=== PATIENT | female | born 1950 | race African-American/Black ===

== ENCOUNTER → 2016-10-26 | Outpatient (CLI) | payer OTHER ==
[~2016-10-26] VITALS: Ht 167.6 cm; Wt 74.8 kg
[~2016-10-26] MED LIST: AMOXICILLIN500 M1 PO; BENADRYL25 MG; EXFORGE; HYDROCHLOROTHIA25 M2 PO; LEVOTHYROXIN0.125 M1 PO; MOBIC15 MG PO; MULTI VITAMIN1 EACH PO; OXYCODONE HCL15 MG PO; TRINATE TABLET1 TAB PO
--- NOTE | ~2016-10-26 | HPC ---
[facility] [place] [address] PAIN MANAGEMENT CONSULTATION Name: DESHAWN KELLY Room #: REG JAKE Hawkins#: [id number] Admission: 10/26/16 Attend Phys: Isiah Huang DO Discharge: Date of : 50 Report #: [id number] THIS REPORT FOR: //name// CC: Rhoda Huang HISTORY OF PRESENT ILLNESS: This is a pleasant 66-year-old female seen in consultation at the request of Dr. Denny for assistance with management of pain, neck, left shoulder and arm. The patient notes she has had chronic cervical radicular symptoms off and on since the s. This bout recurred 4-6 weeks ago without antecedent trauma and overuse. She had similar symptoms well treated with cervical epidural injections x 3 in 09/2014 at another facility, she states she has had multiple cervical epidural injections over the past number of years. She uses oxycodone p.r.n. from her "pain therapist", use a topical pain cream. She notes pain is continuous, steady, constant, sharp and stabbing, rates anywhere from a 5 to a "10+" on a 0-10 visual analog scale. She notes pressure movements swelling, lifting above her head and/or bending over, such as washing bathtub seemed to exacerbate pain. Cervical epidural injections and medication has afforded some relief. 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 She notes no myelopathic symptoms. No bowel or bladder continence changes or saddle anesthesia nor loss proprioception of lower extremities. REVIEW OF SYSTEMS: Complete review of systems attached to chart and gone over with the patient. She is , does not smoke, drink alcohol to excess. History of hypertension, treated with hydrochlorothiazide. She has been on Synthroid for a number of years, history of pancreatitis in the distant past, it appeared to be idiopathic. She does not drink or use recreational drugs. She has some episodic gastroesophageal reflux, is on no medications for same. SURGICAL HISTORY: Has included a right total knee arthroplasty, partial hysterectomy in , breast biopsy, which was fortunately benign, tonsillectomy in childhood. The patient has been off work since 2004. She is a homemaker. She has multiple children and 8 grandchildren and I believe she said 3 great grandchildren. Pain impact score is fairly nominal. PHYSICAL EXAMINATION: GENERAL: Reveals a pleasant 66-year-old female, 5 feet 6 inches, 165 pounds, BMI is 26.6 kilograms per meter squared. VITAL SIGNS: Blood pressure is quite elevated 193/103, pulse 61, respirations 16. We did refer patient back to Dr. Denny regarding her blood pressure, which remained hypertensive throughout her stay. NEUROLOGIC: She is alert and oriented to person, place, and time, judged to [place] [address] PAIN MANAGEMENT CONSULTATION Name: DESHAWN KELLY Room #: REG [facility] Ross#: [id number] Admission: 10/26/16 Attend Phys: Isiah Huang DO Discharge: Date of : 50 Report #: [id number] HEENT: Pupils equal, reactive to light and accommodation. Extraocular muscles are intact. Thyroid is enlarged, no nodules are noted. MUSCULOSKELETAL: Cervical range of motion is limited with grossly positive Lhermitte's. She has a positive Tinel's over the left radial. Left biceps reflex is absent, 1/4 in the right brachioradialis and triceps reflexes are symmetric. Slight decreased left deltoid and biceps strength. HEART: Regular and rhythmical without murmur. LUNGS: Clear to auscultation. ABDOMEN: Unremarkable. EXTREMITIES: Gait is tandem. Lower extremity strength is preserved but she has some subjective pain in the right knee. DIAGNOSTIC STUDIES: Include Cervical MRI from 10/16/2015 noting posterior disk space narrowing at C6-C7 with bilateral neural foraminal narrowing, C5-C6 notes canals narrowed to 9 mm at the C4-C5 and C3-C4. There is bilateral neural foraminal stenosis at multiple levels, more prominent on the left at C3-C4. ASSESSMENT: Symptomatic cervical radiculopathy. The patient has significant hypertension. RECOMMENDATIONS: 1. Cervical epidural injection under fluoroscopy today. 2. Meloxicam 15 mg 1 a day. 3. Follow up with Dr. Denny regarding hypertension. 4. Follow up in 3 weeks for reevaluation and to evaluate efficacy of interventional therapy. PROCEDURE: Cervical epidural injection under fluoroscopy. PROCEDURE NOTE: After written and informed consent was obtained including risk of dural puncture, spinal cord trauma, paralysis and increased pain, the patient was taken to the fluoroscopy suite and placed in the prone position, with appropriate abdominal bolstering, neck was flexed, palms under the thighs. Skin was prepped with ChloraPrep. Sterile draping was applied. Skin wheal with 1% Xylocaine was raised. A 22-gauge 3-1/2 inch epidural Tuohy needle was placed via a midline approach at the C7-T1 interspace, advanced under biplanar fluoroscopy using continuous loss of resistance. With appropriate loss of resistance at the expected depth on lateral view, the glass loss of resistance syringe was disconnected. A low volume extension tubing was connected to the needle and a 5 mL syringe. Negative aspiration for cerebrospinal fluid or blood was noted. A 1 mL of Omnipaque was injected which showed spread within the epidural space on biplanar fluoroscopy. This was followed with 80 mg of triamcinolone plus 1 mL of 1.5% preservative Xylocaine. Needle was withdrawn to the interspinous ligament, 0.5 mL of Xylocaine was used to flush the needle. The needle was then completely withdrawn. The area was cleansed. Band-Aid was applied. The patient was allowed to move off the procedure table and ambulated [address] [address] PAIN MANAGEMENT CONSULTATION Name: KELLYDESHAWN Delia [id number] Admission: 10/26/16 Attend Phys: Isiah Huang DO Discharge: Date of : 50 Report #: [id number] to the recovery room, monitored for an appropriate period of time, discharged in good and stable condition. <ELECTRONICALLY SIGNED> By: Isiah Huang DO 10/29/16 0902 1642 0636 Isiah Huang DO /nt
[2016-10-26 14:54] VITALS: BP 193/103
== END | disposition home or self-care (01) ==
LOC: PAIN 13:07
DX: M54.12 Radiculopathy, cervical region (principal); I10 Essential (primary) hypertension; K21.9 Gastro-esophageal reflux disease without esophagitis

== ENCOUNTER → 2016-11-20 | Outpatient (CLI) | payer OTHER ==
[~2016-11-20] VITALS: Ht 167.6 cm; Wt 74.4 kg
[~2016-11-20] MED LIST changes: +LISINOPRIL10 MG PO
--- NOTE | ~2016-11-20 | HPC ---
[facility] [place] [address] PAIN MANAGEMENT CONSULTATION Name: DESHAWN KELLY Room #: REG JAKE Hawkins#: [id number] Admission: 11/20/16 Attend Phys: Isiah Haung DO Discharge: Date of : 50 Report #: [id number] THIS REPORT FOR: //name// CC: Rhoda Huang HISTORY OF PRESENT ILLNESS: The patient is a 66-year-old female seen in consultation on 10/26/2016, diagnosed as symptomatic cervical radiculopathy, comorbidity with hypertension. She was given a single epidural injection at that time with greater than 50% overall improvement of baseline pain. Returns to pain clinic today noting she still has some cervical radicular symptoms with paresthesia into the left shoulder and arm. Positive Lhermitte's. Rates the pain 7/10. She incidentally notes today ongoing pain in the left knee, which has been problematic. She had had a series of Synvisc injections about a year ago with good relief. Pain has begun to recur. PHYSICAL EXAMINATION: Does show a little bit of ballottable edema, perhaps 20+ mL in this knee. The ligaments are intact. Does have pain with ambulation. Blood pressure is modestly elevated today , pulse 71, respirations 14. Again positive Lhermitte's with slight decreased left shoulder strength. ASSESSMENT: 1. Symptomatic cervical radiculopathy, incremental improvement following one epidural injection. 2. Hypertension. 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 3. Degenerative joint disease, osteoarthritis, left knee. RECOMMENDATIONS: Use topical Voltaren gel for the knee. We will plan on moving forward with Synvisc injection and arthrocentesis at next visit. PROCEDURE: Cervical epidural injection under fluoroscopy. PROCEDURE NOTE: After written and informed consent was obtained including risk of dural puncture, spinal cord trauma, paralysis and increased pain, the patient was taken to the fluoroscopy suite and placed in the prone position, with appropriate abdominal bolstering, neck was flexed, palms under the thighs. Skin was prepped with ChloraPrep. Sterile draping was applied. Skin wheal with 1% Xylocaine was raised. A 22-gauge 3-1/2 inch epidural Tuohy needle was placed via a midline approach at the C7-T1 interspace, advanced under biplanar fluoroscopy using continuous loss of resistance. With appropriate loss of resistance at the expected depth on lateral view, the glass loss of resistance syringe was disconnected. A low volume extension tubing was connected to the [facility] [address] [place] [address] PAIN MANAGEMENT CONSULTATION Name: DESHAWN KELLY Room #: REG JAKE Hawkins#: [id number] Admission: 11/20/16 Attend Phys: Isiah Huang DO Discharge: Date of : 50 Report #: [id number] needle and a 5 mL syringe. Negative aspiration for cerebrospinal fluid or blood was noted. A 1 mL of Omnipaque was injected which showed spread within the epidural space on biplanar fluoroscopy. This was followed with 80 mg of triamcinolone plus 1 mL of 1.5% preservative Xylocaine. Needle was withdrawn to the interspinous ligament, 0.5 mL of Xylocaine was used to flush the needle. The needle was then completely withdrawn. The area was cleansed. Band-Aid was applied. The patient was allowed to move off the procedure table and ambulated to the recovery room, monitored for an appropriate period of time, discharged in good and stable condition. By: [id number] Isiah Huang DO /nt
[2016-11-20 09:56] VITALS: BP 139/98
== END ==
LOC: PAIN 11-16 06:32
DX: M54.12 Radiculopathy, cervical region (principal); I10 Essential (primary) hypertension; M17.12 Unilateral primary osteoarthritis, left knee

== ENCOUNTER → 2016-12-18 | Outpatient (CLI) | payer OTHER ==
[~2016-12-18] VITALS: Ht 167.6 cm; Wt 74.8 kg
--- NOTE | ~2016-12-18 | HPC ---
[facility] [place] [address] PAIN MANAGEMENT CONSULTATION Name: DESHAWN KELLY Delia Room #: REG [facility] Ross#: [id number] Admission: 12/18/16 Attend Phys: Isiah Huang DO Discharge: Date of : 50 Report #: [id number] THIS REPORT FOR: //name// CC: Rhoda Huang The patient is a very pleasant 56-year-old female. She was prior treated for symptomatic cervical radiculopathy, given cervical epidural injection 11/20/2016, with excellent improvement of symptoms. She returns to pain clinic today. At last visit, we had discussed Synvisc injection, left knee. She had 1 Synvisc injection about 3 weeks ago at another provider. She has said I continue the injection series for her. She returns to pain clinic today with ongoing pain in the left knee. Really no ballotable edema noted at this time, but pain with weightbearing. Ligaments are intact. Subjective pain score is 3/10. ASSESSMENT: Degenerative joint disease, left knee, history of cervical radiculopathy. PROCEDURE: Synvisc injection left knee (essentially injection #2 in a series of 3). PROCEDURE NOTE: After written and informed consent was obtained, the patient was placed in the seated position with the left leg allowed to dangle. The knee was prepped with chlorhexidine. Skin wheal with Xylocaine was raised from a lateral and inferior aspect over the superior aspect of the tibial plateau. A 20 gauge Angiocath was easily inserted in a medial superior trajectory into the knee joint. The needle was removed, 2 mL of Synvisc (hylan G-F 20) was injected. The Angiocath was removed. The area was cleansed, Band-Aids applied. The patient is to follow up in 1 week for Synvisc #3. By: [id number] 1322 Isiah Huang, /nt
[2016-12-18 11:00] VITALS: BP 148/94
== END ==
LOC: PAIN 06:48
DX: M17.12 Unilateral primary osteoarthritis, left knee (principal); M54.12 Radiculopathy, cervical region; I10 Essential (primary) hypertension

== ENCOUNTER → 2016-12-25 | Outpatient (CLI) | payer OTHER ==
[~2016-12-25] VITALS: Ht 167.6 cm; Wt 75.3 kg
[2016-12-25 11:15] VITALS: BP 159/95
== END ==
LOC: PAIN 06:52
DX: M17.12 Unilateral primary osteoarthritis, left knee (principal); M54.12 Radiculopathy, cervical region; I10 Essential (primary) hypertension

== ENCOUNTER 2017-07-14 15:10 | Emergency (ER) | payer OTHER ==
[~2017-07-14] VITALS: Ht 167.6 cm; Wt 68.0 kg
[2017-07-14] MEDS ORDERED: PROMETHAZINE/C118 ML PO (16:49)
[2017-07-14 17:26] VITALS: BP 135/75
== END 2017-07-14 17:28 | disposition home or self-care (01) ==
LOC: ER 15:10
DX: J06.9 Acute upper respiratory infection, unspecified (principal); Z88.6 Allergy status to analgesic agent; Z88.0 Allergy status to penicillin; Z98.890 Other specified postprocedural states

== ENCOUNTER → 2017-08-30 | Outpatient (CLI) | payer OTHER ==
[~2017-08-30] MED LIST changes: +COZAAR100 MG PO; +HYDRALAZINE 2525 MG PO; +NORVASC10 MG PO; +OXYCONTIN15 MG PO; +PROMETHAZINE/C118 ML PO; +SYNTHROID50 MCG PO
== END ==
LOC: RAD 01:19
DX: Z12.31 Encounter for screening mammogram for malignant neoplasm of breast (principal)

== ENCOUNTER → 2017-09-22 | Outpatient (CLI) | payer OTHER ==
[~2017-09-22] MED LIST changes: -COZAAR100 MG PO; -HYDRALAZINE 2525 MG PO; -NORVASC10 MG PO; -OXYCONTIN15 MG PO; -SYNTHROID50 MCG PO
== END ==
LOC: ULTRA 09-08 14:31
DX: N63.10 Unspecified lump in the right breast, unspecified quadrant (principal); R92.8 Other abnormal and inconclusive findings on diagnostic imaging of breast

== ENCOUNTER 2017-11-10 14:52 | Inpatient (IN) | payer OTHER ==
[~2017-11-10] VITALS: Ht 167.6 cm; Wt 71.7 kg
--- NOTE | ~2017-11-10 | D ---
[facility] [place] [address] DISCHARGE SUMMARY Name: DESHAWN KELLY Room #: 462-P [facility] IN M.R.#: [id number] Admission: 11/10/17 Attend Phys: Avila Weinberg Discharge: 11/15/17 Date of : 50 Report #: [id number] THIS REPORT FOR: //name// CC: Jairo Orozco DATE OF SERVICE: 11/15/2017 CHIEF COMPLAINT: Hypertension and hypothyroidism. HOSPITAL COURSE: The patient was admitted with elevated blood pressure. She was seen by the Cardiology service and no new findings were made. Hydralazine and losartan were added to her Norvasc and hydrochlorothiazide. TSH was elevated. There was some question of medication compliance. She had no other interval complication. Urine studies for catecholamines were still pending. MRI of the adrenal glands were negative for mass or adenoma. Therefore, no clinical diagnosis of pheochromocytoma was made. Renal ultrasound of the renal arteries was negative as well. DISPOSITION: She will be discharged to home with diet and activity as tolerated. Follow up with Dr. Orozco. She will continue with hydralazine, Cozaar, Norvasc, hydrochlorothiazide, thyroid and oxybutynin. <ELECTRONICALLY SIGNED> By: Lawson Guerrero MD 11/16/17 1526 1030 1045 Lawson Guerrero MD /nt
--- NOTE | ~2017-11-10 | 2DMMODE ---
[facility] [address] [place] [address] 2 D/M-MODE ECHOCARDIOGRAM Name: KELLYDESHAWN QUINTEN Room #: 353-P ADM IN M.R.#: [id number] Admission: 11/10/17 Attend Phys: Jairo Calzada Discharge: Date of : 50 Date of Service: 11/11/17 1013 Report #: [id number] THIS REPORT FOR: //name// APPROVED REPORT Study performed: 11/11/2017 08:09:16 EXAM: Comprehensive 2D, Doppler, and color-flow Echocardiogram Patient Location: Bedside Room #: 353 Status: routine BSA: 1.81 HR: 52 bpm BP: 179/95 mmHg Other Information Study Quality: Good Indications Uncontrolled HTN 2D Dimensions RVDd: 31.39 mm LVEF(%): 66.00 (>50%) IVSd: 16.16 (7-11mm) LVOT Diam: 19.81 (18-24mm) LVDd: 38.02 mm PWd: 14.65 (7-11mm) Ascending Ao: 32.01 (22-36mm) LVDs: 24.44 (25-40mm) Aortic Root: 26.99 mm IVC: 19.00 mm Fernandez's LVEF: 66.00 % Volumes Left Atrial Volume (Systole) Single Plane 4CH: 61.09 mL Single Plane 2CH: 45.38 mL LA ESV Index: 33.00 mL/m2 Aortic Valve AoV Peak Andrea.: 1.27 m/s AO Peak Gr.: 6.43 mmHg LVOT Max P.64 mmHg LVOT Max V: 0.95 m/s TEMI Vmax: 2.32 cm2 Mitral Valve E/A Ratio: 0.9 MV Decel. Time: 290.96 ms MV E Max Andrea.: 0.66 m/s [facility] [place] [address] 2 D/M-MODE ECHOCARDIOGRAM Name: DESHAWN KELLY QUINTEN Room #: 353-P ADM IN M.R.#: [id number] Admission: 11/10/17 Attend Phys: Jairo Calzada Discharge: Date of : 50 Date of Service: 11/11/17 1013 Report #: [id number] MV A Andrea.: 0.75 m/s MV PHT: 84.38 ms IVRT: 103.81 ms Pulmonary Valve PV Peak Andrea.: 0.76 m/s PV Peak Gr.: 2.28 mmHg Pulmonary Vein P Vein S: 0.45 m/s P Vein A: 0.28 m/s P Vein D: 0.35 m/s P Vein A Dur.: 193.8 msec P Vein S/D Ratio: 1.29 Tricuspid Valve TR Peak Andrea.: 2.39 m/s RAP Estimate: 5.00 mmHg TR Peak Gr.: 22.77 mmHg PA Pressure: 28.00 mmHg Left Ventricle The left ventricle is normal size. There is normal LV segmental wall motion. Moderate concentric left ventricular hypertrophy. The left ventricular systolic function is normal. The left ventricular ejection fraction is within the normal range. LVEF is 65-70%. Mild diastolic dysfunction is present (impaired relaxation pattern). Right Ventricle The right ventricle is normal size. The right ventricular systolic function is normal. Atria The left atrium size is normal. The right atrium size is normal. Aortic Valve The aortic valve is mildly sclerotic. No aortic regurgitation is present. There is no aortic valvular stenosis. Mitral Valve The mitral valve is normal in structure. Mild mitral regurgitation. No evidence of mitral valve stenosis. Tricuspid Valve The tricuspid valve is normal in structure. Trace to mild tricuspid regurgitation. PAP is estimated at 28 mmHg. Pulmonic Valve [address] [address] 2 D/M-MODE ECHOCARDIOGRAM Name: DESHAWN KELLY QUINTEN Room #: 353-P [facility] IN .R.#: [id number] Admission: 11/10/17 Attend Phys: Jairo Calzada Discharge: Date of : 50 Date of Service: 11/11/17 1013 Report #: [id number] The pulmonary valve is normal in structure. Mild pulmonic regurgitation. Great Vessels The aortic root is normal in size. IVC is normal in size and collapses >50% with inspiration. Pericardium There is no pericardial effusion. <Conclusion> The left ventricular systolic function is normal. There is normal LV segmental wall motion. Moderate concentric left ventricular hypertrophy. LVEF 65-70%. Mild diastolic dysfunction The aortic valve is mildly sclerotic. No aortic regurgitation or stenosis. The mitral valve is normal in structure. Mild mitral regurgitation. Trace to mild tricuspid regurgitation. Pullmonary artery pressure estimated at 28 mmHg. There is no pericardial effusion. <ELECTRONICALLY SIGNED> By: Ezequiel Mckeon MD, [facility] 11/11/17 1013 1013 1013 Ezequiel Mckeon MD, FACC /INF
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
[2017-11-10 17:08] LABS: HEMATOCRIT 39.7 % (37.0-47.0); HEMOGLOBIN 13.2 gm/dL (12.0-15.0); MCH 30.7 pg (26.0-34.0); MCHC 33.2 g/dL (28.0-37.0); MCV 92.6 fL (80.0-100.0); RBC 4.29 mil/uL (4.20-5.00); RDW 14.6 % (10.5-14.5); WBC 7.5 thou/uL (4.0-11.0)
[2017-11-10 17:25] LABS: ALBUMIN 4.2 g/dL (3.4-5.0); CALCIUM 10.1 mg/dL (8.5-10.1); CREATININE 1.2 mg/dL (0.6-1.0); POTASSIUM 3.1 mmol/L (3.5-5.1); TOTAL BILIRUBIN 0.3 mg/dL (<0.1-1.0); TOTAL PROTEIN 8.7 g/dL (6.4-8.2)
[2017-11-10] MEDS ORDERED: NORVASC10 MG PO (19:33)
[2017-11-10] MEDS ORDERED: HYDROCHLOROTHIA25 M2 PO (19:34)
[2017-11-10] MEDS ORDERED: SYNTHROID50 MCG PO (19:34)
[2017-11-10] MEDS ORDERED: OXYCONTIN15 MG PO (19:35)
[2017-11-10 20:00] VITALS: BP 202/109
[2017-11-10 23:41] VITALS: BP 157/87
[2017-11-11 04:00] VITALS: BP 179/95
[2017-11-11 07:40] VITALS: BP 159/101
[2017-11-11 12:10] VITALS: BP 176/111
[2017-11-11 16:20] VITALS: BP 174/106
[2017-11-11 19:47] VITALS: BP 211/92
[2017-11-11 22:40] LABS: URINE BILIRUBIN NEGATIVE (Negative); URINE BLOOD NEGATIVE (Negative); URINE CLARITY CLEAR; URINE COLOR YELLOW; URINE GLUCOSE-RANDOM* NEGATIVE (Negative); URINE KETONES NEGATIVE (Negative); URINE LEUKOCYTES 1+ (Negative); URINE NITRITE NEGATIVE (Negative); URINE PROTEIN (DIPSTICK) NEGATIVE (Negative); URINE SPECIFIC GRAVITY <= 1.005 (1.005-1.035); URINE UROBILINOGEN 0.2 E.U./dl (0.2-1.0)
[2017-11-11 22:56] LABS: BACTERIA 1-9 Few /HPF (None Seen); CASTS None Seen /LPF (None Seen); CRYSTALS None Seen /LPF (None Seen); SQUAMOUS 0-3 Few /LPF (0-3); URINE RBC None Seen /HPF (0-2); URINE WBC 6-15 Few /HPF (0-5)
[2017-11-12] VITALS (8 sets, daily range): BP systolic 151–178; BP diastolic 92–111
[2017-11-13 04:27] VITALS: BP 172/104
[2017-11-13 07:43] VITALS: BP 159/91
[2017-11-13 16:01] VITALS: BP 167/116
[2017-11-13 20:13] VITALS: BP 174/99
[2017-11-14] VITALS (8 sets, daily range): BP systolic 106–165; BP diastolic 69–90
[2017-11-15 05:54] VITALS: BP 132/84
[2017-11-15 08:00] VITALS: BP 143/78
[2017-11-15] MEDS ORDERED: HYDRALAZINE 2525 MG PO (11:50)
[2017-11-15] MEDS ORDERED: COZAAR100 MG PO (11:50)
[2017-11-15 12:01] VITALS: BP 143/78
== END 2017-11-15 13:35 | disposition home or self-care (01) | DRG 305 ==
LOC: 3W 14:52 → 4W 11-12 18:02 → ENTRNSPT 11-15 12:34 → EDTRNSPTSTS 11-15 12:38 → 4W 11-15 13:35
PROVIDERS: Internal Medicine Geriatric Medicine
DX: I16.9 Hypertensive crisis, unspecified (principal); I10 Essential (primary) hypertension; E03.9 Hypothyroidism, unspecified; G89.29 Other chronic pain; M54.9 Dorsalgia, unspecified; F41.9 Anxiety disorder, unspecified; K59.00 Constipation, unspecified; Z96.651 Presence of right artificial knee joint; Z87.828 Personal history of other (healed) physical injury and trauma; Z79.899 Other long term (current) drug therapy; Z88.1 Allergy status to other antibiotic agents; Z88.5 Allergy status to narcotic agent; Z88.6 Allergy status to analgesic agent
CPT/HCPCS: 10045; 10879

== ENCOUNTER → 2018-11-09 | Outpatient (CLI) | payer OTHER ==
[~2018-11-09] VITALS: Ht 167.6 cm; Wt 73.0 kg
[~2018-11-09] MED LIST changes: +COZAAR100 MG PO; +HYDRALAZINE 2525 MG PO; +NORVASC10 MG PO; +OXYCONTIN15 MG PO; +SYNTHROID50 MCG PO
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
[2018-11-09 13:49] VITALS: BP 174/97
--- NOTE | 2018-11-09 14:13 | NUR ---
Pain Clinic Assessment: 1. History of Osteoarthritis: SPINE History of Rheumatoid Arthritis: 2. Height: 5 ft. 6 in. 167.6 cm. Weight: 161.0 lb. oz. 73.029 kg. Patient's BMI: 26.0 3. Vital Signs: BP: 174/97 Pulse: 63 Resp: 16 Temp: 02 Sat: 100 ECG Mon: 4. Pain Intensity: 10 5. Fall Risk: Dizziness: Y Needs help standing or walking: N Fallen in the last 3 months: N Fall risk comments: 6. Patient on Blood Thinner: None 7. History of Hypertension: Y 8. Opioid Therapy greater than 6 weeks: N Opiate Contract Signed: 9. Risk Assessment Tool Provided: LOW 10. Functional Assessment Tool: 62/70 11. Recreational Drug Use: Current within past 3 mos Drug Type: MARAJAUNA Tobacco Use: Former Smoker Tobacco Type: Amount or Packs/day: How Many Years: Alcohol Use: Yes Frequency: Special Occasions Quant:
== END | disposition home or self-care (01) ==
LOC: PAIN 07:07
DX: M54.12 Radiculopathy, cervical region (principal); G89.29 Other chronic pain; I10 Essential (primary) hypertension; E07.9 Disorder of thyroid, unspecified; M19.90 Unspecified osteoarthritis, unspecified site; Z98.890 Other specified postprocedural states; Z90.711 Acquired absence of uterus with remaining cervical stump; Z96.659 Presence of unspecified artificial knee joint; Z88.8 Allergy status to other drugs, medicaments and biological substances; Z79.899 Other long term (current) drug therapy

== ENCOUNTER → 2018-11-23 | Outpatient (CLI) | payer OTHER ==
[~2018-11-23] VITALS: Ht 167.6 cm; Wt 74.3 kg
[~2018-11-23] MED LIST changes: +AMITRIPTYLINE H10 M3 PO; +HYDROCODON-ACE1 EAC5 PO
[2018-11-23 10:50] VITALS: BP 179/105
--- NOTE | 2018-11-23 10:54 | NUR ---
Pain Clinic Assessment: 1. History of Osteoarthritis: SPINE History of Rheumatoid Arthritis: 2. Height: 5 ft. 6 in. 167.6 cm. Weight: 163.8 lb. oz. 74.299 kg. Patient's BMI: 26.5 3. Vital Signs: BP: 179/105 Pulse: 67 Resp: 16 Temp: 02 Sat: 100 ECG Mon: 4. Pain Intensity: 10 5. Fall Risk: Dizziness: N Needs help standing or walking: N Fallen in the last 3 months: N Fall risk comments: 6. Patient on Blood Thinner: None 7. History of Hypertension: Y 8. Opioid Therapy greater than 6 weeks: N Opiate Contract Signed: 9. Risk Assessment Tool Provided: LOW 10. Functional Assessment Tool: 62/70 11. Recreational Drug Use: Current within past 3 mos Drug Type: MARAJAUNA Tobacco Use: Former Smoker Tobacco Type: Amount or Packs/day: How Many Years: Alcohol Use: No Frequency: Quant:
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
== END | disposition home or self-care (01) ==
LOC: PAIN 06:47
DX: M54.12 Radiculopathy, cervical region (principal); G89.29 Other chronic pain; I10 Essential (primary) hypertension; M17.11 Unilateral primary osteoarthritis, right knee; K92.9 Disease of digestive system, unspecified; E07.9 Disorder of thyroid, unspecified; Z79.899 Other long term (current) drug therapy; Z79.891 Long term (current) use of opiate analgesic; Z96.651 Presence of right artificial knee joint; Z87.891 Personal history of nicotine dependence; Z98.890 Other specified postprocedural states

== ENCOUNTER → 2018-12-02 | Outpatient (CLI) | payer OTHER ==
[~2018-12-02] VITALS: Ht 167.6 cm; Wt 76.6 kg
[~2018-12-02] MED LIST changes: +ROXICODONE15 M1 PO
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
[2018-12-02 12:54] VITALS: BP 180/116
--- NOTE | 2018-12-02 13:05 | NUR ---
Pain Clinic Assessment: 1. History of Osteoarthritis: SPINE History of Rheumatoid Arthritis: 2. Height: 5 ft. 6 in. 167.6 cm. Weight: 168.8 lb. oz. 76.567 kg. Patient's BMI: 27.3 3. Vital Signs: BP: 180/116 Pulse: 63 Resp: 14 Temp: 02 Sat: 100 ECG Mon: 4. Pain Intensity: 10 5. Fall Risk: Dizziness: N Needs help standing or walking: N Fallen in the last 3 months: N Fall risk comments: 6. Patient on Blood Thinner: None 7. History of Hypertension: Y 8. Opioid Therapy greater than 6 weeks: N Opiate Contract Signed: 9. Risk Assessment Tool Provided: LOW 10. Functional Assessment Tool: 62/70 11. Recreational Drug Use: Current within past 3 mos Drug Type: Tobacco Use: Former Smoker Tobacco Type: Amount or Packs/day: How Many Years: Alcohol Use: No Frequency: Quant:
== END ==
LOC: PAIN 06:52
DX: M54.12 Radiculopathy, cervical region (principal); D68.9 Coagulation defect, unspecified; M25.9 Joint disorder, unspecified; E07.9 Disorder of thyroid, unspecified; I10 Essential (primary) hypertension; Z79.899 Other long term (current) drug therapy; Z87.891 Personal history of nicotine dependence; Z88.8 Allergy status to other drugs, medicaments and biological substances

== ENCOUNTER → 2019-01-06 | Outpatient (CLI) | payer OTHER ==
[~2019-01-06] VITALS: Ht 167.6 cm; Wt 73.8 kg
[~2019-01-06] MED LIST changes: +MINOXIDIL PO; +MINOXIDIL10 MG PO
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
[2019-01-06 09:12] VITALS: BP 218/111
--- NOTE | 2019-01-06 09:35 | NUR ---
Pain Clinic Assessment: 1. History of Osteoarthritis: SPINE History of Rheumatoid Arthritis: 2. Height: 5 ft. 6 in. 167.6 cm. Weight: 162.8 lb. oz. 73.846 kg. Patient's BMI: 26.3 3. Vital Signs: BP: 218/111 Pulse: 67 Resp: 16 Temp: 02 Sat: 97 ECG Mon: 4. Pain Intensity: 5 5. Fall Risk: Dizziness: N Needs help standing or walking: N Fallen in the last 3 months: N Fall risk comments: 6. Patient on Blood Thinner: None 7. History of Hypertension: Y 8. Opioid Therapy greater than 6 weeks: N Opiate Contract Signed: 9. Risk Assessment Tool Provided: LOW 10. Functional Assessment Tool: 62/70 11. Recreational Drug Use: Current within past 3 mos Drug Type: Tobacco Use: Former Smoker Tobacco Type: Amount or Packs/day: How Many Years: Alcohol Use: No Frequency: Quant:
== END ==
LOC: PAIN 06:42
DX: Z76.0 Encounter for issue of repeat prescription (principal); M54.12 Radiculopathy, cervical region; E07.9 Disorder of thyroid, unspecified; I10 Essential (primary) hypertension; Z79.891 Long term (current) use of opiate analgesic; Z79.899 Other long term (current) drug therapy; Z88.8 Allergy status to other drugs, medicaments and biological substances; Z88.6 Allergy status to analgesic agent

== ENCOUNTER → 2019-02-15 | Outpatient (CLI) | payer OTHER ==
[~2019-02-15] VITALS: Ht 167.6 cm; Wt 74.1 kg
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
[2019-02-15 09:27] VITALS: BP 210/110
--- NOTE | 2019-02-15 10:02 | NUR ---
Pain Clinic Assessment: 1. History of Osteoarthritis: SPINE History of Rheumatoid Arthritis: Not Applicable 2. Height: 5 ft. 6 in. 167.6 cm. Weight: 163.4 lb. oz. 74.118 kg. Patient's BMI: 26.4 3. Vital Signs: BP: 210/110 Pulse: 72 Resp: 20 Temp: 02 Sat: 100 ECG Mon: 4. Pain Intensity: 5 5. Fall Risk: Dizziness: N Needs help standing or walking: N Fallen in the last 3 months: N Fall risk comments: 6. Patient on Blood Thinner: None 7. History of Hypertension: Y 8. Opioid Therapy greater than 6 weeks: N Opiate Contract Signed: 9. Risk Assessment Tool Provided: LOW-0 10. Functional Assessment Tool: 62/70 11. Recreational Drug Use: Current within past 3 mos Drug Type: Tobacco Use: Former Smoker Tobacco Type: Amount or Packs/day: How Many Years: Alcohol Use: No Frequency: Quant:
== END ==
LOC: PAIN 06:39
DX: M54.12 Radiculopathy, cervical region (principal); M79.601 Pain in right arm; E07.9 Disorder of thyroid, unspecified; M19.90 Unspecified osteoarthritis, unspecified site; I10 Essential (primary) hypertension; M25.511 Pain in right shoulder; Z87.891 Personal history of nicotine dependence; Z88.5 Allergy status to narcotic agent; Z88.6 Allergy status to analgesic agent; Z88.1 Allergy status to other antibiotic agents

== ENCOUNTER → 2019-03-15 | Outpatient (CLI) | payer OTHER ==
[~2019-03-15] VITALS: Ht 167.6 cm; Wt 73.8 kg
[~2019-03-15] MED LIST changes: +FLEXERIL PO
--- NOTE | 2019-03-15 09:57 | NUR ---
Pain Clinic Assessment: 1. History of Osteoarthritis: SPINE History of Rheumatoid Arthritis: Not Applicable 2. Height: 5 ft. 6 in. 167.6 cm. Weight: 162.6 lb. oz. 73.755 kg. Patient's BMI: 26.3 3. Vital Signs: BP: Pulse: 69 Resp: 16 Temp: 02 Sat: 100 ECG Mon: 4. Pain Intensity: 0 NOW 5. Fall Risk: Dizziness: N Needs help standing or walking: N Fallen in the last 3 months: N Fall risk comments: 6. Patient on Blood Thinner: None 7. History of Hypertension: Y 8. Opioid Therapy greater than 6 weeks: N Opiate Contract Signed: 9. Risk Assessment Tool Provided: LOW-0 10. Functional Assessment Tool: 62/70 11. Recreational Drug Use: Current within past 3 mos Drug Type: Tobacco Use: Former Smoker Tobacco Type: Amount or Packs/day: How Many Years: Alcohol Use: No Frequency: Quant:
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
== END ==
LOC: PAIN 06:58
DX: M54.12 Radiculopathy, cervical region (principal); I10 Essential (primary) hypertension; M19.90 Unspecified osteoarthritis, unspecified site; E07.9 Disorder of thyroid, unspecified; Z88.8 Allergy status to other drugs, medicaments and biological substances; Z79.899 Other long term (current) drug therapy

== ENCOUNTER 2019-03-17 11:17 | Emergency (ER) | payer OTHER ==
[~2019-03-17] VITALS: Ht 167.6 cm; Wt 72.6 kg
[2019-03-17 13:09] VITALS: BP 227/128
== END 2019-03-17 13:16 | disposition left against medical advice (07) ==
LOC: ER 11:17
DX: S00.531A Contusion of lip, initial encounter (principal); M25.512 Pain in left shoulder; M25.562 Pain in left knee; Z87.891 Personal history of nicotine dependence; Z88.6 Allergy status to analgesic agent; Z88.1 Allergy status to other antibiotic agents; Z88.5 Allergy status to narcotic agent; Z90.711 Acquired absence of uterus with remaining cervical stump; Z90.89 Acquired absence of other organs; Z96.651 Presence of right artificial knee joint; W10.9XXA Fall (on) (from) unspecified stairs and steps, initial encounter; Y92.009 Unspecified place in unspecified non-institutional (private) residence as the place of occurrence of the external cause; Y93.89 Activity, other specified; Y99.8 Other external cause status

== ENCOUNTER → 2019-04-14 | Outpatient (CLI) | payer OTHER ==
[~2019-04-14] VITALS: Ht 167.6 cm; Wt 74.2 kg
[~2019-04-14] MED LIST changes: +AMITRIPTYLINE H10 M1 PO
[2019-04-14 10:00] VITALS: BP 199/121
--- NOTE | 2019-04-14 10:17 | NUR ---
Pain Clinic Assessment: 1. History of Osteoarthritis: SPINE History of Rheumatoid Arthritis: Not Applicable 2. Height: 5 ft. 6 in. 167.6 cm. Weight: 163.6 lb. oz. 74.208 kg. Patient's BMI: 26.4 3. Vital Signs: BP: 199/121 Pulse: 61 Resp: 14 Temp: 02 Sat: 100 ECG Mon: 4. Pain Intensity: 6 5. Fall Risk: Dizziness: N Needs help standing or walking: N Fallen in the last 3 months: Y Fall risk comments: 6. Patient on Blood Thinner: None 7. History of Hypertension: Y 8. Opioid Therapy greater than 6 weeks: N Opiate Contract Signed: 02/15/19 9. Risk Assessment Tool Provided: LOW-0 10. Functional Assessment Tool: /70 11. Recreational Drug Use: Past greater than 3 mos Drug Type: Tobacco Use: Former Smoker Tobacco Type: Amount or Packs/day: How Many Years: Alcohol Use: No Frequency: Quant:
--- NOTE | 2019-04-17 08:36 | HPC ---
[facility] [address] [place] [address] PAIN MANAGEMENT CONSULTATION Name: DESHAWN KELLY [id number] Admission: 04/14/19 Attend Phys: Annemarie Domingo Discharge: Date of : 50 Report #: [id number] THIS REPORT FOR: //name// CC: Annemarie Domingo [facility] physician/PCP DATE OF SERVICE: 04/14/2019 CHIEF COMPLAINT: Chronic cervical pain and left knee pain. HISTORY OF PRESENT ILLNESS: This is a pleasant 69-year-old female who returns to the pain clinic today. She reports that she recently fell about 2 weeks ago and did hit her face. She did go to the Emergency Room and had x-rays taken. She does not have any broken bones from this recent fall that she continues to have left shoulder pain as well as some ongoing mouth issues. She had seen a dentist regarding her oral problems from the fall. She reports that she did not get any medications from the Emergency Room. She has been taking her oxycodone as prescribed and her pain is slowly resolving today. Today, she reports a pain score is 6/10, again mostly in her left knee as well as her neck and shoulder that is a constant aching pain that is worse with walking, better with resting and her pain medicines as well as heat and ice. She denies any problems with constipation as long as she eats fruit daily and denies any daytime sleepiness. She is scheduled to have cataract surgery on 05/18/2018 and it is also wanting is to schedule a Synvisc injection in her left knee within the next month. ALLERGIES: ASPIRIN. CURRENT LIST OF MEDICATIONS: Oxycodone 15 mg p.r.n., amitriptyline 10 mg at bedtime, Flexeril 10 mg p.r.n., Loniten 10 mg daily, Cozaar 100 mg daily and hydrochlorothiazide 25 mg daily. PQRS: 1. She has arthritic changes in her knee and her neck. She is not being treated for rheumatoid arthritis. 2. Height is 5 feet 6 inches, weight is 163, BMI is 26. 3. Vital signs, blood pressure 199/121, pulse is 61, respirations 14, oxygen sat is 100. 4. Pain score 6/10. 5. Denies dizziness, does not need help walking or standing, has fallen in the last 3 months. 6. She is not on any blood thinners, but does take medicine for hypertension. 7. Opioid therapy is greater than 6 weeks; therefore, no opioid signed contract on the chart. Her risk assessment is low. Functional assessment is 62/70. [address] [address] PAIN MANAGEMENT CONSULTATION Name: DESHAWN KELLY QUINTEN [facility] [id number] Admission: 04/14/19 Attend Phys: Annemarie Domingo Discharge: Date of : 50 Report #: [id number] 8. Recreational drug use in the past. She is a former smoker and does not drink alcohol. According to the prescription monitoring system, she is due for her medications to be filled. We will check a random drug screen on her at her next visit. PHYSICAL EXAMINATION: GENERAL: This is a well-developed, well-nourished black female who appears her stated age, placing her current pain score at 6/10 today. She is alert and orientated and her affect is appropriate. HEENT: Normocephalic, atraumatic. Extraocular eye muscles are intact. Mucous membranes are moist. She has slight puffiness on the left side of her face from her recent fall. No ecchymosis noted. HEART: Regular rate. MUSCULOSKELETAL: Without significant scoliosis, kyphosis or lordosis. She has pain and discomfort in the lower portion of her lumbosacral region. She has tenderness in her left knee, it increases with standing and weightbearing, as well as flexion and extension. Her lower extremity strength judged to be 5/5 for all major muscle groups. IMPRESSION: 1. Cervical radiculopathy. 2. Bleeding tendencies. 3. Hypertension. 4. Thyroid disease. 5. Osteoarthritis involving her bilateral knees. We reviewed the fact that opiate medications are being used to provide analgesia adequate to support activities of daily living, not attempting to achieve a specific pain score on the 0-10 Visual Analog Scale. The current opiate medications are providing sufficient analgesia to allow the patient to participate in activities of daily living. The patient is not exhibiting any aberrant behavior suggestive of drug diversion. The patient is not having any adverse reactions to medications. The patient is not suffering from daytime somnolence or mental acuity changes. The patient is managing opiate-induced constipation with appropriate fwil-tqi-opmwlce agents and dietary considerations. The patient was counseled on concern for caution with operating a motor vehicle while using opiate medications. A physical exam was performed and the patient's functional status was evaluated. All patients with back pain were advised against the bed rest greater than 4 days and were advised to return to normal activities. Pain score assessment was noted and the treatment plan was reviewed with the patient. All current medications, both prescribed and OTC were reviewed and reconciled on the electronic medical record. Tobacco screening was accomplished and smoking cessation was advised when indicated. BMI was noted and diet/exercise [address] [address] PAIN MANAGEMENT CONSULTATION Name: DESHAWN KELLY [facility] [id number] Admission: 04/14/19 Attend Phys: Annemarie Domingo Discharge: Date of : 50 Report #: [id number] modification was recommended for all patients following outside normal parameters. I reviewed with the patient today their responsibilities to safeguard prescription medications, reviewed their responsibility to utilize medications only as prescribed by the physician. They are to seek and receive pain medications only from 1 physician group ( [facility]). They are to use 1 pharmacy and keep the clinic informed if they change pharmacies. Their responsibilities include making followup visits in a timely fashion and to avoid abrupt discontinuation of medication usage. Their responsibilities further include bringing their medications (bottles from the pharmacy with residual pills) to the visit for possible confirmation of pill counts and the patient understands it is their responsibility to submit to random drug screens to ensure both that the medications prescribed are present, and that no other controlled substances are present. All prescriptions provided today were generated electronically. PLAN: 1. We discussed treatment options with the patient today. The patient finds her oxycodone very beneficial in controlling her pain. Scripts given today for oxycodone 15 mg, #60 as well as amitriptyline 10 mg, #30 with 2 additional refills. 2. We discussed the patient's blood pressure, which is significantly elevated today at 199/121. The patient reports that she took her hypertension medicines less than 30 minutes before I encouraged her to check it at home on daily basis to evaluate if her blood pressure remains high, she needs to discuss this with her primary care doctor and maybe adjust her medications. She verbalizes understanding. 3. The patient is requesting an injection in her left knee. We will schedule an appointment for Synvisc injections for her osteoarthritis by Dr. Saad Ireland within the month and informed her we need to order this medication and make sure it is approved and seek authorization from her insurance company prior to ordering this medication. 4. The patient is seen today with Dr. Saad Ireland who did see the patient and collaborated care. <ELECTRONICALLY SIGNED> By: Annemarie Domingo 04/17/19 [id number] [id number] Annemarie Domingo /nt
== END ==
LOC: PAIN 06:57
DX: M54.12 Radiculopathy, cervical region (principal); I10 Essential (primary) hypertension; M17.0 Bilateral primary osteoarthritis of knee; E07.9 Disorder of thyroid, unspecified

== ENCOUNTER → 2019-05-19 | Outpatient (CLI) | payer OTHER ==
[~2019-05-19] VITALS: Ht 167.6 cm; Wt 72.4 kg
[2019-05-19 09:57] VITALS: BP 206/117
--- NOTE | 2019-05-19 10:02 | NUR ---
Pain Clinic Assessment: 1. History of Osteoarthritis: SPINE History of Rheumatoid Arthritis: Not Applicable 2. Height: 5 ft. 6 in. 167.6 cm. Weight: 159.6 lb. oz. 72.394 kg. Patient's BMI: 25.8 3. Vital Signs: BP: 206/117 Pulse: 61 Resp: 16 Temp: 02 Sat: 100 ECG Mon: 4. Pain Intensity: 6 5. Fall Risk: Dizziness: N Needs help standing or walking: N Fallen in the last 3 months: Y Fall risk comments: 6. Patient on Blood Thinner: None 7. History of Hypertension: Y 8. Opioid Therapy greater than 6 weeks: N Opiate Contract Signed: 02/15/19 9. Risk Assessment Tool Provided: LOW-0 10. Functional Assessment Tool: /70 11. Recreational Drug Use: Past greater than 3 mos Drug Type: Tobacco Use: Former Smoker Tobacco Type: Amount or Packs/day: How Many Years: Alcohol Use: No Frequency: Quant:
== END | disposition home or self-care (01) ==
LOC: PAIN 06:51
DX: M54.12 Radiculopathy, cervical region (principal); G89.29 Other chronic pain; I10 Essential (primary) hypertension; Z87.891 Personal history of nicotine dependence; Z88.8 Allergy status to other drugs, medicaments and biological substances; Z79.899 Other long term (current) drug therapy; Z98.890 Other specified postprocedural states

== ENCOUNTER → 2019-06-30 | Outpatient (CLI) | payer OTHER ==
[~2019-06-30] VITALS: Ht 167.6 cm; Wt 72.1 kg
[~2019-06-30] MED LIST changes: +ODOR FREE GARL1 EAC1 PO; +ROXICODONE15 MG PO; +VITAMIN C1000 MG PO
--- NOTE | 2019-06-30 13:44 | NUR ---
Pain Clinic Assessment: 1. History of Osteoarthritis: SPINE History of Rheumatoid Arthritis: Not Applicable 2. Height: 5 ft. 6 in. 167.6 cm. Weight: 159.0 lb. oz. 72.122 kg. Patient's BMI: 25.7 3. Vital Signs: BP: Pulse: 64 Resp: 18 Temp: 02 Sat: 100 ECG Mon: 4. Pain Intensity: 4 5. Fall Risk: Dizziness: N Needs help standing or walking: N Fallen in the last 3 months: Y Fall risk comments: 6. Patient on Blood Thinner: None 7. History of Hypertension: Y 8. Opioid Therapy greater than 6 weeks: N Opiate Contract Signed: 02/15/19 9. Risk Assessment Tool Provided: LOW-0 10. Functional Assessment Tool: 62/70 11. Recreational Drug Use: Current within past 3 mos Drug Type: MARIJUANA ATTEMPTED 2 WK Tobacco Use: Former Smoker Tobacco Type: Amount or Packs/day: How Many Years: Alcohol Use: No Frequency: Quant:
--- NOTE | 2019-07-19 16:47 | HPC ---
[facility] [address] [address] PAIN MANAGEMENT CONSULTATION Name: DESHAWN KELLY Room #: REG JAKE BenavidesRbo#: [id number] Admission: 06/30/19 Attend Phys: Day Ireland MD Discharge: Date of : 50 Report #: [id number] THIS REPORT FOR: //name// CC: [facility] physician/PCP Day Ireland DATE OF SERVICE: 06/30/2019 CHIEF COMPLAINT: Chronic low back pain. HISTORY: The patient is a 69-year-old female who has been followed in the Pain Clinic. As you may recall, she has pain and discomfort, which involves her neck. She has undergone cervical epidural steroid injections. She continues to have pain, which she rates as a 4/10. Has some pain in the low back area. Has some bilateral knee pain and discomfort. She is here for renewal of her medications. She has been continuing to monitor blood pressure. Each time, she has come to the Pain Clinic has been quite high. States that it is generally relatively controlled when she is at home. Continues to state that she suffers from white coat syndrome. She has been experiencing pain since 1979. This is when the neck pain became problematic. In 2001, she had issues with her knee. Describes her discomfort as sharp, constant and aching. Notes that walking is problematic. Lying down at night can be problematic. Notes that she has some improvement in her pain when she rests her knees, neck, and back area. Has used ice and heat and found this helpful. Epidural steroid injections have been helpful as well. She has returned today with the hopes of renewing her medications. ALLERGIES: MORPHINE, ASPIRIN, ERYTHROMYCIN. CURRENT MEDICATIONS: Lisinopril 10 mg, meloxicam 15 mg, Synthroid 0.125 mg, vitamins, vitamins, oxycodone IR 15 mg, hydrochlorothiazide 25 mg. PAIN CLINIC ASSESSMENT/PQRS: 1. The patient has pain and discomfort in her knees. She is experiencing osteoarthritis in her knees. She has some arthritic changes in her neck. She is not being treated for rheumatoid arthritis. 2. Height 5 feet 6 inches, weight 159 pounds, BMI is 25.7. 3. Vital signs: Blood pressure is 209/141, second blood pressure 209/114, pulse 66. 4. Pain intensity, 4/10. 5. Fall history: The patient has not fallen since we saw her last. 6. Blood thinner. The patient is not on a blood thinning medication. 7. Hypertension. The patient is on hypertensive medications. States that her systolic blood pressures are in the 150 at home. 8. Opioid use excuse for 6 weeks. The patient receives medication from one source [place] [address] PAIN MANAGEMENT CONSULTATION Name: LTEICIADESHAWN QUINTEN Room #: REG JAKE Hawkins#: [id number] Admission: 06/30/19 Attend Phys: Day Ireland MD Discharge: Date of : 50 Report #: [id number] 9. Risk assessment tool, low for opioid use. 10. Functional assessment tool, 62/70. 11. Recreational drug use. The patient has used marijuana in the past. 12. Tobacco: The patient is a former smoker. 13. Alcohol. The patient denies use of alcoholic beverages. The patient states that she tried the marijuana to see whether or not it would improve her condition. It was felt that this did not help with her pain and she does not continue to use it again. PHYSICAL EXAMINATION: GENERAL: The patient is a well-developed, well-nourished black female, appears her stated age. She is alert and oriented x 3. Her affect is appropriate. Speech is fluent. HEENT: Normocephalic, atraumatic. Extraocular eye muscles intact. Sclerae nonicteric. Mucous membranes are moist. NECK: Without adenopathy or JVD. Extraocular eye muscles intact. The patient does have some pain and discomfort in her shoulders with pain that radiates down to her left shoulder with some limitation in movement. HEART: Regular rate. LUNGS: Clear to auscultation without rhonchi or rales. ABDOMEN: Nontender. Bowel sounds present. MUSCULOSKELETAL: Without significant scoliosis, kyphosis or lordosis. Upper extremity muscle strength is judged to be 5-/5 for the major muscle groups in the upper extremity. The patient has some pain and soreness in the low back area. IMPRESSION: 1. Cervical radiculopathy involving the left arm with pain that radiates down to the right side as well. 2. Hypertension. The patient states that she suffers from white coat syndrome. States that her mechanical engineering manager is aware of her condition. States that at home, her blood pressures are in the 150s. 3. Thyroid disease. 4. Stomach problems. 5. Joint disease/arthritis. RECOMMENDATIONS: We discussed treatment options with the patient. Risks and benefits of opioid use were discussed. The patient feels that the medications continue to be helpful. She underwent a cervical epidural steroid injection in the past. She did note some benefit from that. She has not had any complications. She is aware that the opioid medications can become less effective as time goes on. She would like to continue with her medications. A script for renewal of her medications had been written. She will continue with amitriptyline 10 mg at bedtime. She will also continue with oxycodone 15 mg 1 p.o. b.i.d. The patient will follow up in 2 months. She will call us if she has any concerns. She will continue to monitor blood pressure and follow up [facility] [address] [place] [address] PAIN MANAGEMENT CONSULTATION Name: DESHAWN KELLY QUINTEN [id number] Admission: 06/30/19 Attend Phys: Day Ireland MD Discharge: Date of : 50 Report #: [id number] with her mechanical engineering manager in regards to her hypertension, We would like to thank you for letting us participate in her care. We hope she continues to improve. <ELECTRONICALLY SIGNED> By: Day Ireland MD 07/19/19 [id number] [id number] Day Ireland MD /nt
== END ==
LOC: PAIN 06:57
DX: M54.12 Radiculopathy, cervical region (principal); G89.29 Other chronic pain; I10 Essential (primary) hypertension; E07.89 Other specified disorders of thyroid; M19.90 Unspecified osteoarthritis, unspecified site; F12.90 Cannabis use, unspecified, uncomplicated; Z87.891 Personal history of nicotine dependence; Z79.891 Long term (current) use of opiate analgesic; Z79.899 Other long term (current) drug therapy; Z88.6 Allergy status to analgesic agent; Z88.5 Allergy status to narcotic agent; Z88.1 Allergy status to other antibiotic agents

== ENCOUNTER → 2019-09-05 | Outpatient (CLI) | payer OTHER ==
[~2019-09-05] VITALS: Ht 167.6 cm; Wt 69.6 kg
[~2019-09-05] MED LIST changes: +VITAMIN B17 PO
[2019-09-05 10:43] VITALS: BP 191/120
--- NOTE | 2019-09-05 10:51 | NUR ---
Pain Clinic Assessment: 1. History of Osteoarthritis: SPINE History of Rheumatoid Arthritis: Not Applicable 2. Height: 5 ft. 6 in. 167.6 cm. Weight: 153.4 lb. oz. 69.582 kg. Patient's BMI: 24.8 3. Vital Signs: BP: 191/120 Pulse: 67 Resp: 16 Temp: 02 Sat: 99 ECG Mon: 4. Pain Intensity: 5 5. Fall Risk: Dizziness: Y Needs help standing or walking: N Fallen in the last 3 months: N Fall risk comments: 6. Patient on Blood Thinner: None 7. History of Hypertension: Y 8. Opioid Therapy greater than 6 weeks: N Opiate Contract Signed: 02/15/19 9. Risk Assessment Tool Provided: LOW-0 10. Functional Assessment Tool: 62/70 11. Recreational Drug Use: Current within past 3 mos Drug Type: Tobacco Use: Former Smoker Tobacco Type: Amount or Packs/day: How Many Years: Alcohol Use: No Frequency: Quant:
--- NOTE | 2019-09-06 10:05 | HPC ---
[facility] [place] [address] [address] PAIN MANAGEMENT CONSULTATION Name: DESHAWN KELLY Room #: PRE [facility] M..#: [id number] Admission: Attend Phys: Annemarie Domingo Discharge: Date of : 50 Report #: [id number] THIS REPORT FOR: cc: FAM - No family physician/PCP FAM - No family physician/PCP Annemarie Domingo ~ DATE OF SERVICE: 09/05/2019 CHIEF COMPLAINT: Bilateral knee pain and low back pain. HISTORY OF PRESENT ILLNESS: This is a 69-year-old female who returns to the Pain Clinic today for refill of her medications. She reports a pain score of 5/10, most significantly in her left knee, though she does have right knee pain as well as neck and shoulder pain. She is reporting her pain score at 5/10 today, worse with walking and lying down. She states that ice, heat, occasional epidurals and her medications are very beneficial. She has had significant increased pain over the last month, requiring her to take an extra pain pill on several days. She reports she has been out of her oxycodone for about 4-5 days. She feels that she has not experienced any withdrawal symptoms of her medication. She reports that she has no daytime somnolence from her medications and does not suffer from constipation. The patient continues to have issues with her previous cataract surgery. She had an infection in her eye using eyedrops, but does not take any oral antibiotics. She continues to have high blood pressure, is working with Dr. Bustillo regarding that issue. We have counseled her several times regarding her elevated blood pressure. 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 ALLERGIES: MORPHINE, ASPIRIN, ERYTHROMYCIN. CURRENT LIST OF MEDICATIONS: Vitamin B12, oxycodone, amitriptyline, garlic, vitamin C, Flexeril, Cozaar, hydrochlorothiazide. PQRS: 1. She has osteoarthritic changes in her knees and her neck. She is not being treated for rheumatoid arthritis. 2. Height is 5 feet 6 inches, weight is 153, BMI is 24. 3. Vital signs 119/120, pulse is 67, respirations 16, oxygen sat is 99. Pain score 5/10. Does complain of dizziness, does not need help walking or standing, has not fallen in the last 3 months. The patient is not on any blood thinners, but does take medicines for hypertension that is not controlled. Her opioid therapy is greater than 6 weeks; therefore, has as opioid signed contract on the chart. Risk assessment tool is low. Functional assessment 62/70. Recreational drug use in the past. She is a former smoker and does not drink alcohol. [address] [address] PAIN MANAGEMENT CONSULTATION Name: DESHAWN KELLY Room #: SHWETA Hawkins#: [id number] Admission: Attend Phys: Annemarie Domingo Discharge: Date of : 50 Report #: [id number] According to the prescription monitoring system, the patient has been filling appropriately, though she is out of her medications early by taking too many. PHYSICAL EXAMINATION: GENERAL: This is a well-developed, well-nourished black female who appears her stated age, placing her pain score at 5/10. She is alert and orientated. She is a good historian. HEENT: Normocephalic, atraumatic. Extraocular eye muscles are intact. Mucous membranes are moist. NECK: Without adenopathy or JVD. She does have some localized tenderness in her neck, occasionally radiates into her left shoulder with some limitations in movement. MUSCULOSKELETAL: She is without significant scoliosis, kyphosis or lordosis. Her left knee is tender with no swelling. Pain increased with standing. Lower extremity strength judged to be 5/5 in all major muscle groups. IMPRESSION: 1. Cervical radiculopathy. 2. Hypertension, not well controlled on medications. 3. Osteoarthritis involving bilateral knees, left greater than right. 4. Medication management under terms of written opioid agreement. PLAN: 1. We discussed treatment options with the patient today. The patient is complaining of significant left knee pain and would like to have her knee injected. We have discussed this in the past, but she was getting ready to have cataract surgery, so it was put on hold. We will schedule her back next week for Synvisc injections in her left knee. Again, she has had these in the past by Dr. Isiah Huang, had very beneficial relief. She has had her right knee replaced since that time. Her left knee continues to be bothersome and she is trying to hold off on surgery. We will seek authorization for the Synvisc injections from her insurance company and we will schedule her with Dr. Saad Ireland for next week. 2. We will continue her on her oxycodone 15 mg b.i.d., #60. These will be sent electronically by Dr. Albino Huang today who is covering for Dr. Ireland for today and 4 weeks supply. The patient reminded to take these as directed, so she does not go through withdrawal, which she states she has been out of her medicines 4-5 days. 3. We will refill her amitriptyline 10 mg at bedtime, #30 with 5 additional refills. 4. The patient is seen today in collaboration with Dr. Albino Huang. Appointment made for next week with Dr. Saad Ireland. <ELECTRONICALLY SIGNED> By: Annemarie Domingo 09/06/19 1005 [id number] Annemarie Domingo /nt
== END ==
LOC: PAIN 06:48
DX: M54.12 Radiculopathy, cervical region (principal); I10 Essential (primary) hypertension; M17.0 Bilateral primary osteoarthritis of knee; F11.20 Opioid dependence, uncomplicated; Z88.5 Allergy status to narcotic agent; Z88.6 Allergy status to analgesic agent; Z88.1 Allergy status to other antibiotic agents; Z79.899 Other long term (current) drug therapy

== ENCOUNTER → 2019-09-13 | Outpatient (CLI) | payer OTHER ==
[~2019-09-13] VITALS: Ht 167.6 cm; Wt 70.2 kg
[2019-09-13 10:17] VITALS: BP 181/116
--- NOTE | 2019-09-13 10:32 | NUR ---
Pain Clinic Assessment: 1. History of Osteoarthritis: SPINE KNEE History of Rheumatoid Arthritis: DENIES 2. Height: 5 ft. 6 in. 167.6 cm. Weight: 154.8 lb. oz. 70.217 kg. Patient's BMI: 25.0 3. Vital Signs: BP: 181/116 Pulse: 65 Resp: 14 Temp: 02 Sat: 100 ECG Mon: 4. Pain Intensity: 7 5. Fall Risk: Dizziness: N Needs help standing or walking: N Fallen in the last 3 months: N Fall risk comments: 6. Patient on Blood Thinner: None 7. History of Hypertension: Y 8. Opioid Therapy greater than 6 weeks: N Opiate Contract Signed: 02/15/19 9. Risk Assessment Tool Provided: LOW-0 10. Functional Assessment Tool: /70 11. Recreational Drug Use: Past greater than 3 mos Drug Type: MARIJUNA Tobacco Use: Former Smoker Tobacco Type: Amount or Packs/day: How Many Years: Alcohol Use: Yes Frequency: Special Occasions Quant:
--- NOTE | 2019-09-22 08:21 | HPC ---
[facility] [place] [address] PAIN MANAGEMENT CONSULTATION Name: DESHAWN KELLY Room #: REG JAKE Benavides.#: [id number] Admission: 09/13/19 Attend Phys: Day Ireland MD Discharge: Date of : 50 Report #: [id number] THIS REPORT FOR: cc: DOMINIQUE - No family physician/PCP DOMINIQUE - No family physician/PCP Day Ireland MD ~ CC: DOMINIQUE physician/PCP Day Ireland DATE OF SERVICE: 09/13/2019 CHIEF COMPLAINT: Bilateral knee pain. HISTORY: The patient is a 69-year-old female who has been followed in the pain clinic because of chronic pain. She has pain and discomfort in her left knee today. She also has pain in her right knee. She has pain in the neck and shoulder area. She returns today to the pain clinic with the desire to undergo a left knee injection. She describes the pain as chronic sharp in pain. She rates it as a 7/10. Notes that walking and weightbearing can be quite problematic. Notes pain while lying down at night. She does use ice, heat and pain medications to help quell the pain and discomfort. At this point, she would like to proceed with an epidural injection. She finds that amitriptyline 10 mg at bedtime and oxycodone 15 mg b.i.d. are helpful. She has undergone knee injections in the past. She found that those are helpful. ALLERGIES: MORPHINE, ASPIRIN, ERYTHROMYCIN. CURRENT MEDICATIONS: Vitamin B12, oxycodone, amitriptyline, garlic, vitamin C, Flexeril, Cozaar, hydrochlorothiazide. PAIN CLINIC ASSESSMENT AND PQRS: 1. The patient has some osteoarthritic changes in her spine and her knees. Denies use or rheumatoid arthritis. 2. Height 5 feet 6 inches, weight 154 pounds, BMI is 25. 3. Vital signs: Blood pressure 181/116, pulse 65, respiratory rate 16, room air saturation is 100%. We again discussed the elevated blood pressures the patient experiences. She states that she has white coat syndrome. States that she continues to follow up with her cardiac doctor and when she is at home her systolics in the 140s and the diastolics 90 and below. 4. Pain intensity, 01/04. 5. Fall history. The patient has not fallen since we saw her last. 6. Blood thinner. The patient is not on a blood thinning medication. 7. Hypertension. The patient is being treated for hypertension. 8. Opioids greater than 6 weeks. The patient continues with oxycodone 15 mg as prescribed. 9. Functional assessment tool, . [address] [address] PAIN MANAGEMENT CONSULTATION Name: KELLY,DESHAWN QUINTEN Room #: REG [facility].#: [id number] Admission: 09/13/19 Attend Phys: Day Ireland MD Discharge: Date of : 50 Report #: [id number] 10. Recreational drug use. The patient occasionally uses marijuana. 11. Tobacco. The patient denies use of tobacco. 12. Alcohol. The patient rarely drinks alcoholic beverages. PHYSICAL EXAMINATION: GENERAL: The patient is a well-developed, well-nourished, black female. Appears her stated age. She is alert and oriented x 3. Her affect is appropriate. Speech is fluent. HEENT: Normocephalic, atraumatic. Extraocular eye muscles intact. Sclerae nonicteric. NECK: Without adenopathy or JVD. The patient has some pain and discomfort in the left shoulder with some limited movement. MUSCULOSKELETAL: The patient without significant scoliosis, kyphosis, or lordosis. The patient has some tenderness in her left knee. There is some slight bit of swelling. States that pain in the left knee continues to be problematic. Muscle strength 5-/5 for the major muscle groups in the left lower extremity and 5/5 for the right side. IMPRESSION: 1. History of cervical radiculopathy. 2. Hypertension, not well controlled/white coat syndrome. We have discussed this on numerous occasions where the patient states that her Cardiology doctor is aware and feels that no additional medication changes need to be made at this juncture per her report. 3. Osteoarthritis involving knees bilaterally, left greater than right. 4. Medication management with chronic opioid use. RECOMMENDATIONS: The patient has returned today with the hopes of undergoing an injection in her knee. She would like to try the Synvisc injections in the left knee. We have explained the risks and benefits of the procedure. They include trauma to the knee, nerve damage, bleeding, cartilage damage and the patient elects to proceed. PROCEDURE NOTE: The patient was taken to the procedure area. She was then assisted in getting on the examination table. She was placed in a supine position. The left knee was sterilely cleaned with a chlorhexidine solution. It was then allowed to dry. It was cleansed a second time with a chlorhexidine solution and allowed to dry. The left lateral patellar approach was undertaken. The superior and inferior portion of the patella were identified. In the upper third of the patella, the groove beneath the patella was noted. Palpation of the patella from the medial aspect was performed. This acted to elevate the patella. An area was identified prior to sterilization of this area with pressure from the cap of the needle. The area was noted. A 27-gauge needle with 1% lidocaine was used to anesthetize the area. A 25-gauge needle was advanced using no touch technique. The needle was passed under the patella. Aspiration was negative. The Synvisc medication was then slowly injected [address] [address] [place] [address] PAIN MANAGEMENT CONSULTATION Name: DESHAWN KELLY Room #: REG [facility].#: [id number] Admission: 09/13/19 Attend Phys: Day Ireland MD Discharge: Date of : 50 Report #: [id number] without resistance. Synvisc was slowly injected. The patient tolerated the procedure well. She was then taken to the recovery area. A Band-Aid had been placed over the site. There was no bleeding. She remained in the pain clinic for an appropriate amount of time. Her pain score was 0 at the time of discharge. She will follow up in the future for an additional injection in about 1 week. We would like to thank you for letting us participate in her care. We hope she continues to improve. <ELECTRONICALLY SIGNED> By: Day Ireland MD 09/22/19 0821 [id number] [id number] Day Ireland MD /ELIEL
== END | disposition home or self-care (01) ==
LOC: PAIN 06:41
DX: M25.561 Pain in right knee (principal); M25.562 Pain in left knee; M17.0 Bilateral primary osteoarthritis of knee; M54.12 Radiculopathy, cervical region; I10 Essential (primary) hypertension; G89.29 Other chronic pain; Z98.890 Other specified postprocedural states; Z79.899 Other long term (current) drug therapy; Z79.891 Long term (current) use of opiate analgesic; Z88.8 Allergy status to other drugs, medicaments and biological substances; Z87.891 Personal history of nicotine dependence

== ENCOUNTER → 2019-09-20 | Outpatient (CLI) | payer OTHER ==
[~2019-09-20] VITALS: Ht 167.6 cm; Wt 77.1 kg
[2019-09-20 09:12] VITALS: BP 202/102
--- NOTE | 2019-09-20 09:17 | NUR ---
Pain Clinic Assessment: 1. History of Osteoarthritis: SPINE KNEE History of Rheumatoid Arthritis: DENIES 2. Height: 5 ft. 6 in. 167.6 cm. Weight: 170.0 lb. oz. 77.112 kg. Patient's BMI: 27.5 3. Vital Signs: BP: 202/102 Pulse: 63 Resp: 14 Temp: 02 Sat: 100 ECG Mon: 4. Pain Intensity: 4 5. Fall Risk: Dizziness: N Needs help standing or walking: N Fallen in the last 3 months: N Fall risk comments: 6. Patient on Blood Thinner: None 7. History of Hypertension: Y 8. Opioid Therapy greater than 6 weeks: N Opiate Contract Signed: 02/15/19 9. Risk Assessment Tool Provided: LOW-0 10. Functional Assessment Tool: /70 11. Recreational Drug Use: Past greater than 3 mos Drug Type: Tobacco Use: Former Smoker Tobacco Type: Cigarettes Amount or Packs/day: How Many Years: Alcohol Use: Yes Frequency: Special Occasions Quant: 1-2
--- NOTE | 2019-09-22 08:21 | H ---
[facility] [place] [address] [address] [place] [address] HISTORY AND PHYSICAL Name: DESHAWN KELLY Room #: REG JAKE Benavides.#: [id number] Admission: 09/20/19 Attend Phys: Day Ireland MD Discharge: Date of : 50 Report #: [id number] THIS REPORT FOR: cc: DOMINIQUE - No family physician/PCP DOMINIQUE - No family physician/PCP Day Ireland MD ~ CC: [facility] physician/PCP Day Ireland DATE OF SERVICE: 09/20/2019 CHIEF COMPLAINT: Bilateral knee pain. HISTORY OF PRESENT ILLNESS: The patient is a 69-year-old female. She has been followed in the Pain Clinic. She has chronic pain involving her left knee. It is most problematic. She also has some pain in the right knee. She has returned today for an injection in the left knee. The last injection seems to have been helpful. States that she is having less popping sensation in her knee. She has returned today for another injection. She has been injected with Hylan G-F 20 (Synvisc). ALLERGIES: MORPHINE, ASPIRIN, AND ERYTHROMYCIN. CURRENT MEDICATIONS: Vitamin B12, oxycodone, amitriptyline, garlic, vitamin C, Flexeril, Cozaar, and hydrochlorothiazide. PAIN CLINIC ASSESSMENT/PQRS: 1. The patient has some osteoarthritic changes in her spine and her knees. She denies any rheumatoid arthritis. 2. Height 5 feet 6 inches, weight 170 pounds, BMI is 27.5. 3. Vital signs: Blood pressure 202/112, pulse 61, respiratory rate 14, room air saturations 100%. The patient states she has white coat syndrome. We have had numerous conversations regarding her elevated blood pressure. States that when she goes home, it falls down into the 140s/80s to 90 range. 4. Pain intensity 10/05. 5. Fall risk. The patient has not fallen in the last 3 months. 6. Blood thinner. The patient is not on a blood thinning medication. 7. Hypertension. The patient is being treated for hypertension. 8. Opioids greater than 6 weeks. The patient received medication from one source the Pain Clinic. 9. Risk assessment tool, low for opioid use. 10. Recreational drug use: The patient denies. 11. Tobacco: The patient is a former smoker. 12. Alcohol: The patient occasionally drinks alcoholic beverages. PHYSICAL EXAMINATION: [facility] [address] [place] [address] HISTORY AND PHYSICAL Name: DESHAWN KELLY Room #: REG JAKE BenavidesRob#: [id number] Admission: 09/20/19 Attend Phys: Day Ireland MD Discharge: Date of : 50 Report #: [id number] GENERAL: The patient is a well-developed, well-nourished black female. She is accompanied by her . She is wearing a mask. Has rubber gloves on because of the fear associated with COVID-19. HEENT: Normocephalic, atraumatic. Extraocular eye muscles intact. NECK: Without adenopathy or JVD. The patient has some pain and discomfort in the left shoulder with some limited movement. MUSCULOSKELETAL: The patient is without significant scoliosis, kyphosis or lordosis. The patient has some tenderness and discomfort in her left knee. There is a slight bulge and swelling in this area. Muscle strength judged to be 5-/5 for the major muscle groups in the lower extremity, this is on the left. Right side 5/5 for the major muscle groups on the right. IMPRESSION: 1. History of cervical radiculopathy. 2. Hypertension, not well controlled when visiting the Pain Clinic, states that she follows up with her cardiology doctor and feels that her current medications appear adequate per the patient's report. 3. Osteoarthritis involving her knee pain bilaterally, greater pain on the left than right. 4. Medical management of chronic pain using opioids chronically. RECOMMENDATION: We discussed treatment options with the patient. Risks and benefits of Synvisc injections to the left knee were discussed. Possible complications of the procedure, which could include infection, worsening of pain, no improvement in pain, trauma to the nerve, bleeding, cartilage damage and the patient elects to proceed. PROCEDURE NOTE: The patient was taken to the procedure area. She was then assisted in getting on the examination table. The patient was placed in the supine position. Her left knee was sterilely prepped and cleaned with chlorhexidine solution and allowed to dry. It was cleansed a second time with chlorhexidine solution and allowed to dry. The left lateral patellar approach was undertaken. The superior and inferior portion of the patella were identified. At approximately the upper third of the patella, a groove beneath the patella was noted. Palpation of the medial aspect of the patella elevated was performed. A sterilization technique without touching the procedure was performed. This area was sprayed with ethanol type substance to cool and decrease pain at the time of the injection. A 27-gauge needle was then used to put 1% lidocaine into the area. A skin wheal was raised. A total of 3 mL of 1% was injected and allowed to anesthetize the area. A 25-gauge needle was then used to pass under the patella. Aspiration was negative. There was no fluid was withdrawn. the needle passed through the joint capsule. Aspiration was negative. The Synvisc (Hylan G-F 20, 2 mL was injected). There were no complaints during the injection. A Band-Aid was placed after the needle was withdrawn. The patient was taken to the recovery room where she remained for an appropriate amount of time. There was no bleeding. She will call us if she has [address] [address] [place] [address] HISTORY AND PHYSICAL Name: DESHAWN KELLY Room #: REG [facility].#: [id number] Admission: 09/20/19 Attend Phys: Day Ireland MD Discharge: Date of : 50 Report #: [id number] any concerns. Her pain level was 0 at the time of discharge. She will follow up in 1 week for an additional injection. We would like to thank you for letting us participate in her care. We hope she continues to improve. <ELECTRONICALLY SIGNED> By: Day Ireland MD 09/22/19 0821 1623 1803 Day Ireland MD /nt
== END | disposition home or self-care (01) ==
LOC: PAIN 06:48
DX: M25.561 Pain in right knee (principal); M25.562 Pain in left knee; M17.0 Bilateral primary osteoarthritis of knee; I10 Essential (primary) hypertension; G89.29 Other chronic pain; Z98.890 Other specified postprocedural states; Z79.899 Other long term (current) drug therapy; Z87.891 Personal history of nicotine dependence; Z88.8 Allergy status to other drugs, medicaments and biological substances

== ENCOUNTER → 2019-11-10 | Outpatient (CLI) | payer OTHER ==
[~2019-11-10] VITALS: Ht 167.6 cm; Wt 75.4 kg
[2019-11-10 08:12] VITALS: BP 183/97
--- NOTE | 2019-11-22 15:55 | HPC ---
[facility] [address] [address] [place] [address] PAIN MANAGEMENT CONSULTATION Name: DESHAWN KELLY Room #: REG JAKE Benavides.#: [id number] Admission: 11/10/19 Attend Phys: Day Ireland MD Discharge: Date of : 50 Report #: [id number] THIS REPORT FOR: cc: DOMINIQUE - No family physician/PCP DOMINIQUE - No family physician/PCP Day Ireland MD ~ CC: DOMINIQUE physician/PCP Day Ireland DATE OF SERVICE: 11/10/2019 CHIEF COMPLAINT: Left knee pain and bilateral knee pain. HISTORY: The patient is a 69-year-old female who has been followed in the pain clinic. She has problems with both her left and the right knee. At this juncture, the left is most problematic. She has undergone injections in the past. She has found that these to be helpful. She is continued to have some pain and discomfort. She rates her pain as an 8/10. She has returned today for another injection of Synvisc. She has had no complications with the previous injections. ALLERGIES: MORPHINE, ASPIRIN, ERYTHROMYCIN. CURRENT MEDICATIONS: Vitamin B12, oxycodone, amitriptyline, garlic, vitamin C, Flexeril, Cozaar, hydrochlorothiazide. PAIN CLINIC ASSESSMENT/PQRS: 1. The patient has some osteoarthritic changes in her spine and in her knees. She denies history of rheumatoid arthritis. 2. Height 5 feet 6 inches, weight 166 pounds, BMI is 26.8. 3. Vital signs: Blood pressure 183/97, pulse 62, respiratory rate 18, room air saturation is 100%. 4. Pain intensity 02/04. 5. Fall risk. The patient has not fallen. 6. Blood thinner. The patient is not on a blood thinning medication. 7. Hypertension. The patient is followed by her primary physician. 8. Risk assessment tool, low for opioid use. 9. Functional assessment tool 62/70. 10. Recreational drug use. The patient denies. 11. Tobacco: The patient is a former smoker. 12. Alcohol. The patient rarely drinks alcoholic beverages. PHYSICAL EXAMINATION: GENERAL: The patient is a well-developed, well-nourished black female, she is alert and oriented x 3. She is wearing a mask. She has rubber gloves in place. She is nervous in regard to the COVID-[place] [address] PAIN MANAGEMENT CONSULTATION Name: DESHAWN KELLY Room #: REG JAKE GramajoRobAbrahanRob#: [id number] Admission: 11/10/19 Attend Phys: Day Ireland MD Discharge: Date of : 50 Report #: [id number] HEENT: Normocephalic, atraumatic. Extraocular eye muscles intact. NECK: Without adenopathy or JVD. The patient has some discomfort in her shoulders with some limitation in movement. MUSCULOSKELETAL: The patient is without significant scoliosis, kyphosis or lordosis. The patient has some tenderness in her left knee. Some decreased range of motion. There is slight swelling in the area. Muscle strength judged to be 5-/5 for the major muscle groups in the lower extremity. The patient has some pain and discomfort on the right side and muscle strength is judged to be 5-/5 for the major muscle groups on the right. IMPRESSION: 1. History of cervical radiculopathy. 2. History of hypertension. The patient states that her blood pressures at home are in the normal level. States that she is followed by her funeral assistant who is maintaining and following her in regard to her blood pressures. She states that she has elevated blood pressures when in the hospital because of white coat syndrome. 3. Osteoarthritis involving left knee more so than the right today. 4. Medical management for control of pain using opioid medications. RECOMMENDATIONS: We discussed treatment options with the patient. At this juncture, the patient has undergone two Synvisc injections in the left knee. Overall, she feels that they have been helped somewhat helpful. She continues to have pain, which is problematic. Rates her pain as an 8/10 today. She has returned for another injection. She would also like to have her medications renewed. A script for her oxycodone 15 mg 1 p.o. b.i.d. have been provided. The patient will also continue with amitriptyline 10 mg at bedtime. PROCEDURE NOTE: The patient was taken to the procedure area. She was then assisted in getting on the examination table. The patient was placed in the supine position. A pillow was placed under her left leg. The left knee was sterilely prepped and cleansed. This was done on 2 occasions and allowed to dry with chlorhexidine solution. The lateral knee area was then sprayed with cooling spray to numb the area. A 27-gauge needle was then used to provide a skin wheal using sterile technique, a 25-gauge needle was then advanced into the left lateral portion of her knee. Medial pressure on the kneecap raised at somewhat. At the upper one-third of the patella. A 25-gauge needle was advanced. There was no resistance. Aspiration was negative. The Synvisc (hylan G-S 20 total of 2 mL was injected. There was no complaint. There was no discomfort. A Band-Aid was placed. The patient was then taken to the recovery room where she remained for an appropriate amount of time. There were no problems. The patient was then discharged with her medications of amitriptyline and oxycodone. 1% lidocaine was used to anesthetize the area and it was without . [facility] [address] [place] [address] PAIN MANAGEMENT CONSULTATION Name: LETICIADESHAWN QUINTEN Room #: REG [facility] Ross#: [id number] Admission: 11/10/19 Attend Phys: Day Ireland MD Discharge: Date of : 50 Report #: [id number] We would like to thank you for letting us to participate in her care. We hope she continues to improve. The patient will return to the Pain Clinic p.r.n. <ELECTRONICALLY SIGNED> By: Day Ireland MD 11/22/19 1555 0016 0643 Day Ireland MD /ELIEL
== END | disposition home or self-care (01) ==
LOC: PAIN 09-27 06:50
DX: M25.562 Pain in left knee (principal); M17.12 Unilateral primary osteoarthritis, left knee; G89.29 Other chronic pain; I10 Essential (primary) hypertension; Z98.890 Other specified postprocedural states; Z79.899 Other long term (current) drug therapy; Z87.891 Personal history of nicotine dependence; Z88.8 Allergy status to other drugs, medicaments and biological substances

== ENCOUNTER → 2020-01-12 | Outpatient (CLI) | payer OTHER ==
[~2020-01-12] VITALS: Ht 167.6 cm; Wt 70.3 kg
[~2020-01-12] MED LIST changes: +LOSARTAN POTAS100 MG PO; +PROPRANOLOL 20M20 M1 PO; +PROTONIX 20 MG20 MG PO
[2020-01-12 11:02] VITALS: BP 194/106
--- NOTE | 2020-01-12 11:04 | NUR ---
Pain Clinic Assessment: 1. History of Osteoarthritis: SPINE KNEE History of Rheumatoid Arthritis: DENIES 2. Height: 5 ft. 6 in. 167.6 cm. Weight: 155.0 lb. oz. 70.308 kg. Patient's BMI: 25.0 3. Vital Signs: BP: 194/106 Pulse: 73 Resp: 16 Temp: 02 Sat: 100 ECG Mon: 4. Pain Intensity: 6 5. Fall Risk: Dizziness: N Needs help standing or walking: N Fallen in the last 3 months: N Fall risk comments: 6. Patient on Blood Thinner: None 7. History of Hypertension: Y 8. Opioid Therapy greater than 6 weeks: N Opiate Contract Signed: 02/15/19 9. Risk Assessment Tool Provided: LOW-0 10. Functional Assessment Tool: 11. Recreational Drug Use: Past greater than 3 mos Drug Type: Tobacco Use: Former Smoker Tobacco Type: Amount or Packs/day: How Many Years: Alcohol Use: Yes Frequency: Quant:
--- NOTE | 2020-01-29 20:39 | HPC ---
[facility] [place] [address] [address] [place] [address] PAIN MANAGEMENT CONSULTATION Name: DESHAWN KELLY Room #: REG JAKE Hawkins#: [id number] Admission: 01/12/20 Attend Phys: Day Ireland MD Discharge: Date of : 50 Report #: [id number] THIS REPORT FOR: cc: DOMINIQUE - No family physician/PCP DOMINIQUE - No family physician/PCP Day Ireland MD ~ CC: [facility] physician/PCP Day Ireland DATE OF SERVICE: 01/12/2020 CHIEF COMPLAINT: Left knee pain and stomach pain. HISTORY: The patient is a 69-year-old female who has been followed in the pain clinic because of chronic pain. Today, she is having pain on both the left and right side of her head. She also is having pain in both knees. She feels maybe that an MRI might be needed. Notes that the pain is worse with certain activities. She rates her pain as a 6/10. Pain is exacerbated by lying down at night, bending forward, being out in the hot sun and improves when she rests, uses ice, heat and takes pain medications. She feels that her medications are helpful. She has had knee pain. 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 ALLERGIES: MORPHINE, ASPIRIN, ERYTHROMYCIN. CURRENT MEDICATIONS: Vitamin B12, oxycodone, amitriptyline, garlic, vitamin C, Flexeril, Cozaar, hydrochlorothiazide. PAIN CLINIC ASSESSMENT AND PQRS: 1. The patient has some osteoarthritic changes in her spine and in her knees. She is not being treated for rheumatoid arthritis. 2. Height 5 feet 6 inches, weight 155 pounds, BMI is 25. 3. Vital signs: Blood pressure 194/106, pulse 73, respiratory rate 16, room air saturation 100. The patient's blood pressure has consistently been at this range whenever we see her. States that she has white coat syndrome. States that she has been followed up by her primary in regards to her elevated blood pressure. 4. Pain intensity 12/05. 5. Fall risk. The patient has not fallen in the last 3 months. 6. Blood thinner. The patient is not on a blood thinning medication. 7. Hypertension. The patient is being treated for hypertension. 8. Opioids greater than 6 weeks. The patient has received her medication from the pain clinic. 9. Risk assessment tool, low for opioid use. 10. Functional assessment tool . 11. Recreational drug use. The patient denies. 12. Tobacco: The patient denies use of tobacco. [address] [address] PAIN MANAGEMENT CONSULTATION Name: DESHAWN KELLY Room #: REG [facility]#: [id number] Admission: 01/12/20 Attend Phys: Day Ireland MD Discharge: Date of : 50 Report #: [id number] 13. Alcohol. The patient denies frequent use of alcoholic beverages. PHYSICAL EXAMINATION: GENERAL: The patient is a well-developed, well-nourished black female. She is alert and oriented x 3. She is wearing a mask. Has concerns regarding the COVID-19 and is appears to be nervous. HEENT: Normocephalic, atraumatic. Extraocular eye muscles intact. Sclerae nonicteric. Mucous membranes are moist. NECK: Without adenopathy or JVD. MUSCULOSKELETAL: The patient complains of pain and discomfort in her stomach. Feels that she has increased problems with congestion because of finances. Has less pain in her upper shoulders. Continues to have pain in her knee, tender on the left side. IMPRESSION: 1. History of cervical radiculopathy. 2. History of hypertension. The patient states that blood pressures are more normal at home when she takes them in the 150 systolic range. 3. Osteoarthritis involving left knee as well as some discomfort on the right. 4. Medical management and control of pain using opioids. RECOMMENDATIONS: We discussed treatment options with the patient. At this juncture, we will continue with her medications. She will follow up in the near future. The patient continues to be quite anxious because of the COVID-19 problem. A script for her medications of oxycodone 15 mg 1 p.o. b.i.d. has been rewritten. The patient will also continue with amitriptyline 10 mg at bedtime. We would like to thank you for letting us participate in her care. We hope she continues to improve. <ELECTRONICALLY SIGNED> By: Day Ireland MD 01/29/209 2157 0525 Day Ireland MD /ELIEL
== END ==
LOC: PAIN 06:51
PROVIDERS: ATTEND Anesthesiology Pain Medicine
DX: M54.12 Radiculopathy, cervical region (principal); I10 Essential (primary) hypertension; M19.012 Primary osteoarthritis, left shoulder; Z79.891 Long term (current) use of opiate analgesic

== ENCOUNTER → 2020-04-17 | Outpatient (CLI) | payer OTHER ==
[~2020-04-17] VITALS: Ht 167.6 cm; Wt 68.0 kg
--- NOTE | ~2020-04-17 | HPC ---
[facility] [place] [address] PAIN MANAGEMENT CONSULTATION Name: DESHAWN KELLY Room #: REG JAKE HaydeAbrahanRob#: [id number] Admission: 04/17/20 Attend Phys: Day Ireland MD Discharge: Date of : 50 Report #: [id number] CC: [place] Ireland DATE OF SERVICE: 04/17/2020 CHIEF COMPLAINT: "I fell and broke my right leg." HISTORY: The patient is a 70-year-old female who has been followed in the pain clinic. She has a history of chronic pain. She has pain in the neck area. She also has pain in her knees. She has undergone epidural injections in her left knee because of chronic pain with osteoarthritis. She has had the right knee replaced. She states that she stood and the next thing she knew she had fallen. Her leg was broken. She was seen. She has had surgery for the broken right leg. Describes her pain as a 6/10. Has pain in her right leg. Notes some sharp, intermittent, aching discomfort. She is walking with a cane. It seems like it is healing reasonably well per her report. They had to do some significant surgery because of the brake. A marichuy was placed in the upper thigh and down in the tibial area. She has returned today for renewal of her medications. ALLERGIES: MORPHINE, ASPIRIN, ERYTHROMYCIN. CURRENT MEDICATIONS: Vitamin B12, oxycodone, amitriptyline, garlic, vitamin C, Flexeril, Cozaar, hydrochlorothiazide. PAIN CLINIC ASSESSMENT AND PQRS: 1. The patient has some osteoarthritic changes. It involves her spine. She also has that her left knee and right knee has been replaced. The patient is not being treated for rheumatoid arthritis. 2. Height 5 feet 6 inches, weight 150 pounds, BMI 24. 3. Vital Signs: Blood pressure 161/99, pulse 69, respiratory rate 16, room air saturation 100%. 4. Pain intensity /10. 5. Fall history: The patient did fall and fractured her right leg and knee. 6. Blood thinner. The patient is not on a blood thinning medication. 7. Hypertension. The patient is being treated for hypertension. 8. Opioids greater than 6 weeks. The patient receives medication from one source the pain clinic. 9. Risk assessment tool, low for opioid use. 10. Functional assessment tool . 11. Recreational drug use: The patient denied. 12. Tobacco: The patient is a former smoker. 13. Alcohol. The patient denies frequent use of alcoholic beverages. PHYSICAL EXAMINATION: GENERAL: The patient is a well-developed, well-nourished black female, appears her stated age. She is alert and oriented x 3. Her affect is appropriate. Speech is fluent. She is wearing a mask. She complains of pain in her upper neck area. Also, has a facial covering in place. HEART: Regular rate. ABDOMEN: Nontender. LUNGS: Clear. MUSCULOSKELETAL: The patient has a cane. She is walking with an antalgic gait. She has a well-healing scar in the right knee area. IMPRESSION: 1. New fracture of right leg after a fall. 2. History of cervical radiculopathy. 3. History of hypertension. The patient continues to monitor blood pressure. 4. Osteoarthritis involving the left knee and recent fracture of the right knee. 5. Medical management and control of pain with use of opioids. RECOMMENDATIONS: We discussed treatment options with the patient. Risks and benefits of opioid medications were discussed. The patient feels that the medications continue to be helpful. She has had no complications with their use. She has returned today for renewal of her medication. A script for her medications of amitriptyline 10 mg 1 p.o. daily has been provided. The patient will also continue with oxycodone 15 mg 1 p.o. b.i.d. as needed. She will call us if she has any concerns. We would like to thank you for letting us participate in her care. By: [id number] Day Ireland MD /ELIEL
[2020-04-17 14:38] VITALS: BP 161/99
--- NOTE | 2020-04-17 14:54 | NUR ---
Pain Clinic Assessment: 1. History of Osteoarthritis: SPINE KNEE History of Rheumatoid Arthritis: DENIES 2. Height: 5 ft. 6 in. 167.6 cm. Weight: 150.0 lb. oz. 68.040 kg. Patient's BMI: 24.2 3. Vital Signs: BP: 161/99 Pulse: 69 Resp: 16 Temp: 02 Sat: 100 ECG Mon: 4. Pain Intensity: 6 5. Fall Risk: Dizziness: N Needs help standing or walking: Y Fallen in the last 3 months: Y Fall risk comments: 6. Patient on Blood Thinner: None 7. History of Hypertension: Y 8. Opioid Therapy greater than 6 weeks: N Opiate Contract Signed: 02/15/19 9. Risk Assessment Tool Provided: LOW-0 10. Functional Assessment Tool: 11. Recreational Drug Use: Past greater than 3 mos Drug Type: Tobacco Use: Former Smoker Tobacco Type: Amount or Packs/day: How Many Years: Alcohol Use: Yes Frequency: Quant:
== END ==
LOC: PAIN 07:01
PROVIDERS: ATTEND Anesthesiology Pain Medicine
DX: S82.91XD Unspecified fracture of right lower leg, subsequent encounter for closed fracture with routine healing (principal); I10 Essential (primary) hypertension; M17.12 Unilateral primary osteoarthritis, left knee; F11.20 Opioid dependence, uncomplicated; Z88.8 Allergy status to other drugs, medicaments and biological substances; Z79.899 Other long term (current) drug therapy; Z87.39 Personal history of other diseases of the musculoskeletal system and connective tissue; X58.XXXD Exposure to other specified factors, subsequent encounter

== ENCOUNTER → 2020-04-29 | Outpatient (CLI) | payer OTHER | LOC: SJCVCIMAG 07:32 | PROVIDERS: ATTEND Internal Medicine Cardiovascular Disease | DX: I08.8 Other rheumatic multiple valve diseases (principal); I11.9 Hypertensive heart disease without heart failure; R94.31 Abnormal electrocardiogram [ECG] [EKG]; I49.9 Cardiac arrhythmia, unspecified; E03.9 Hypothyroidism, unspecified; G43.909 Migraine, unspecified, not intractable, without status migrainosus; Z79.899 Other long term (current) drug therapy; Z87.891 Personal history of nicotine dependence ==

== ENCOUNTER → 2020-06-07 | Outpatient (CLI) | payer OTHER ==
[~2020-06-07] VITALS: Ht 167.6 cm; Wt 72.7 kg
[~2020-06-07] MED LIST changes: +DIPHENHIST50 MG PO; +EMGALITY120 MG/1 M SUBQ
[2020-06-07 12:52] VITALS: BP 191/127
--- NOTE | 2020-06-07 12:59 | NUR ---
Pain Clinic Assessment: 1. History of Osteoarthritis: SPINE KNEE History of Rheumatoid Arthritis: DENIES 2. Height: 5 ft. 6 in. 167.6 cm. Weight: 160.2 lb. oz. 72.666 kg. Patient's BMI: 25.9 3. Vital Signs: BP: 191/127 Pulse: 59 Resp: 14 Temp: 02 Sat: 100 ECG Mon: 4. Pain Intensity: 9 5. Fall Risk: Dizziness: N Needs help standing or walking: N Fallen in the last 3 months: N Fall risk comments: 6. Patient on Blood Thinner: None 7. History of Hypertension: Y 8. Opioid Therapy greater than 6 weeks: N Opiate Contract Signed: 02/15/19 9. Risk Assessment Tool Provided: LOW-0 10. Functional Assessment Tool: 11. Recreational Drug Use: Past greater than 3 mos Drug Type: Tobacco Use: Former Smoker Tobacco Type: Amount or Packs/day: How Many Years: Alcohol Use: Yes Frequency: Special Occasions Quant: 1-2
== END | disposition home or self-care (01) ==
LOC: PAIN 06:55
PROVIDERS: ATTEND Anesthesiology Pain Medicine
DX: M54.12 Radiculopathy, cervical region (principal); G89.29 Other chronic pain; I10 Essential (primary) hypertension; M17.12 Unilateral primary osteoarthritis, left knee; Z98.890 Other specified postprocedural states; Z79.899 Other long term (current) drug therapy; Z87.891 Personal history of nicotine dependence; Z87.19 Personal history of other diseases of the digestive system; Z96.651 Presence of right artificial knee joint; Z90.711 Acquired absence of uterus with remaining cervical stump; Z88.8 Allergy status to other drugs, medicaments and biological substances

== ENCOUNTER → 2020-06-26 | Outpatient (CLI) | payer OTHER ==
[~2020-06-26] VITALS: Ht 167.6 cm; Wt 72.8 kg
[~2020-06-26] MED LIST changes: +BANOPHEN25 MG PO; +D3 + K2 DOTS 11 EACH PO; +HAIR, SKIN & N1 EAC2 PO; +PAMELOR10 MG PO; +TURMERIC500 M2 PO
[2020-06-26 14:47] VITALS: BP 203/109
--- NOTE | 2020-06-26 15:13 | NUR ---
Pain Clinic Assessment: 1. History of Osteoarthritis: SPINE KNEE History of Rheumatoid Arthritis: DENIES 2. Height: 5 ft. 6 in. 167.6 cm. Weight: 160.6 lb. oz. 72.848 kg. Patient's BMI: 25.9 3. Vital Signs: BP: 203/109 Pulse: 63 Resp: 18 Temp: 02 Sat: 100 ECG Mon: 4. Pain Intensity: 8 5. Fall Risk: Dizziness: Y Needs help standing or walking: Y Fallen in the last 3 months: N Fall risk comments: 6. Patient on Blood Thinner: None 7. History of Hypertension: Y 8. Opioid Therapy greater than 6 weeks: N Opiate Contract Signed: 02/15/19 9. Risk Assessment Tool Provided: LOW-0 10. Functional Assessment Tool: 11. Recreational Drug Use: Past greater than 3 mos Drug Type: Tobacco Use: Former Smoker Tobacco Type: Amount or Packs/day: How Many Years: Alcohol Use: Yes Frequency: Special Occasions Quant: 1
== END | disposition home or self-care (01) ==
LOC: PAIN 06-19 13:07
PROVIDERS: ATTEND Anesthesiology Pain Medicine
DX: M17.12 Unilateral primary osteoarthritis, left knee (principal); G89.29 Other chronic pain; M25.562 Pain in left knee; I10 Essential (primary) hypertension; E03.9 Hypothyroidism, unspecified; Z98.890 Other specified postprocedural states; Z79.899 Other long term (current) drug therapy; Z90.711 Acquired absence of uterus with remaining cervical stump; Z96.651 Presence of right artificial knee joint; Z87.891 Personal history of nicotine dependence

== ENCOUNTER → 2020-08-23 | Outpatient (CLI) | payer MEDICARE, OTHER ==
[~2020-08-23] MED LIST changes: +B12 ACTIVE1000 MCG PO; +VITAMIN B 17 PO
--- NOTE | 2020-08-26 08:00 | HPC ---
[facility] [place] [address] PAIN MANAGEMENT CONSULTATION Name: DESHAWN KELLY Room #: REG [facility] MRadha.#: [id number] Admission: 08/23/20 Attend Phys: Annemarie Domingo Discharge: Date of : 50 Report #: [id number] THIS REPORT FOR: cc: China Concepcion MD Mcrae, Jennifer A, MD Hocker,Annemarie WILSON ~ DATE OF SERVICE: 08/23/2020 CHIEF COMPLAINT: Low back pain, bilateral knee pain. HISTORY OF PRESENT ILLNESS: This is a 70-year-old female that I am speaking via the telephone for a Telemed appointment, speaking with her from 9:55-10:15 that she has consented for. This is a 70-year-old female who continues to have ongoing bilateral knee pain, most significantly in the left, though she does have right knee pain as well, which has recently been replaced and continues to be problematic. The patient is reporting her pain today at 5/10 in her knees. She reports that her cervical pain has been relieved currently, at times it may be problematic when she reaches or bends in the wrong direction causing strain in her neck, but most days, it has not been a problem per her report. She describes her pain in her knee as a throbbing, intermittent sharp pain, worse with walking. She does utilize heat and ice as well as her opioid medications twice a day and finds these beneficial. She does report that Synvisc injection that Dr. Ireland provided her in May was helpful for about 50%. She hopes that she does not need to have a total left knee replaced anytime soon since she has been having so many issues with her right. The patient is requesting refills for her medications today. She was unable to come to appointments. ALLERGIES: ASPIRIN, ERYTHROMYCIN AND MORPHINE. CURRENT LIST OF MEDICATIONS: Vitamin D, multivitamin, ____ Protonix, nortriptyline, oxycodone 15 mg b.i.d., Benadryl p.r.n., amlodipine, losartan, garlic and ascorbic acid. PQRS: 1. She has arthritic changes in her knees and spine. Denies any rheumatoid arthritis. 2. Height, weight and vital signs are deferred due to a Telemed appointment. She is not on any blood thinners. Her pain score is 5/10. Hypertension she takes medications for. Her risk assessment tool is low. Functional assessment is 32/70. 3. Recreational drug use in the past. She is a former smoker and occasionally drinks alcohol. PHYSICAL EXAMINATION: This is a review of systems. She is alert and [address] [address] PAIN MANAGEMENT CONSULTATION Name: LETICIADESHAWN QUINTEN Room #: REG JAKE Hawkins#: [id number] Admission: 08/23/20 Attend Phys: Annemarie Domingo Discharge: Date of : 50 Report #: [id number] orientated, slightly depressed today, answering all my questions appropriately, rating her pain score a 5/10. She reports significant pain in her knees bilaterally, greater on the left than the right. Denies any cervical radiculopathy symptoms currently, but does have problems p.r.n. IMPRESSION: 1. Cervical radiculopathy, stable currently. 2. History of hypertension, on current medications. 3. Osteoarthritis of the left knee. 4. Total knee replacement on the right, continued to be problematic. 5. Management of high risk medications under written opioid agreement. PLAN: 1. We discussed treatment options with the patient today. The patient finds her oxycodone effective in helping control her pain, taking it after breakfast in the morning and then in the evening. She denies any significant constipation as a result of this opioid medication and would like to continue. I will have Dr. Saad Ireland to send these electronically to release today, 08/23/2020 and again on 09/20/2020. Reminding the patient she will need to come to an appointment in the office in September. 2. We did discuss possible Synvisc injections in the future. Encouraged the patient to call and schedule an appointment for that when she believes she needs another injection. 3. The patient's Telemed appointment discussed with Dr. Saad Ireland and collaborated with him. <ELECTRONICALLY SIGNED> By: Annemarie Domingo 08/26/20 0800 [id number] Annemarie Domingo /nt
== END ==
LOC: PAIN 06:58 → TELEPC 06:58 → PAIN 08:39
PROVIDERS: ATTEND Clinical Nurse Specialist Adult Health
DX: M54.12 Radiculopathy, cervical region (principal); M25.561 Pain in right knee; M17.12 Unilateral primary osteoarthritis, left knee; F11.20 Opioid dependence, uncomplicated; I10 Essential (primary) hypertension; Z96.651 Presence of right artificial knee joint; Z79.899 Other long term (current) drug therapy

== ENCOUNTER → 2020-10-25 | Outpatient (CLI) | payer OTHER ==
[~2020-10-25] VITALS: Ht 167.6 cm; Wt 70.3 kg
[2020-10-25 13:56] VITALS: BP 154/88
--- NOTE | 2020-10-25 14:08 | NUR ---
Pain Clinic Assessment: 1. History of Osteoarthritis: SPINE KNEE History of Rheumatoid Arthritis: DENIES 2. Height: 5 ft. 6 in. 167.6 cm. Weight: 155.0 lb. oz. 70.308 kg. Patient's BMI: 25.0 3. Vital Signs: BP: 154/88 Pulse: 69 Resp: 18 Temp: 02 Sat: 100 ECG Mon: 4. Pain Intensity: 7-8 5. Fall Risk: Dizziness: N Needs help standing or walking: N Fallen in the last 3 months: N Fall risk comments: 6. Patient on Blood Thinner: None 7. History of Hypertension: Y 8. Opioid Therapy greater than 6 weeks: N Opiate Contract Signed: 02/15/19 9. Risk Assessment Tool Provided: LOW-0 10. Functional Assessment Tool: 11. Recreational Drug Use: Past greater than 3 mos Drug Type: Tobacco Use: Former Smoker Tobacco Type: Amount or Packs/day: How Many Years: Alcohol Use: Yes Frequency: Special Occasions Quant:
== END ==
LOC: PAIN 12:17
PROVIDERS: ATTEND Anesthesiology Pain Medicine
DX: M54.12 Radiculopathy, cervical region (principal); M17.12 Unilateral primary osteoarthritis, left knee; I10 Essential (primary) hypertension; F11.20 Opioid dependence, uncomplicated; Z79.899 Other long term (current) drug therapy; Z87.39 Personal history of other diseases of the musculoskeletal system and connective tissue; Z87.891 Personal history of nicotine dependence; Z88.8 Allergy status to other drugs, medicaments and biological substances

== ENCOUNTER → 2021-03-07 | Outpatient (CLI) | payer OTHER ==
[~2021-03-07] VITALS: Ht 167.6 cm; Wt 72.7 kg
[2021-03-07 10:43] VITALS: BP 202/108
--- NOTE | 2021-03-07 10:50 | NUR ---
Pain Clinic Assessment: 1. History of Osteoarthritis: SPINE KNEE History of Rheumatoid Arthritis: DENIES 2. Height: 5 ft. 6 in. 167.6 cm. Weight: 160.2 lb. oz. 72.666 kg. Patient's BMI: 25.9 3. Vital Signs: BP: 202/108 Pulse: 56 Resp: 16 Temp: 02 Sat: 100 ECG Mon: 4. Pain Intensity: 7 5. Fall Risk: Dizziness: N Needs help standing or walking: N Fallen in the last 3 months: N Fall risk comments: 6. Patient on Blood Thinner: None 7. History of Hypertension: Y 8. Opioid Therapy greater than 6 weeks: N Opiate Contract Signed: 02/15/19 9. Risk Assessment Tool Provided: LOW-0 10. Functional Assessment Tool: 11. Recreational Drug Use: Past greater than 3 mos Drug Type: Tobacco Use: Former Smoker Tobacco Type: Amount or Packs/day: How Many Years: Alcohol Use: Yes Frequency: Quant:
== END ==
LOC: PAIN 09:35
PROVIDERS: ATTEND Anesthesiology Pain Medicine
DX: M54.12 Radiculopathy, cervical region (principal); S82.891D Other fracture of right lower leg, subsequent encounter for closed fracture with routine healing; M17.12 Unilateral primary osteoarthritis, left knee; Z79.899 Other long term (current) drug therapy; Z79.891 Long term (current) use of opiate analgesic; W19.XXXD Unspecified fall, subsequent encounter

== ENCOUNTER → 2021-06-13 | Outpatient (CLI) | payer OTHER ==
[~2021-06-13] VITALS: Ht 167.6 cm; Wt 73.5 kg
[~2021-06-13] MED LIST changes: +OXYCODONE HCL10 MG PO
[2021-06-13 10:27] VITALS: BP 153/97
--- NOTE | 2021-06-13 10:33 | NUR ---
Pain Clinic Assessment: 1. History of Osteoarthritis: SPINE KNEE History of Rheumatoid Arthritis: DENIES 2. Height: 5 ft. 6 in. 167.6 cm. Weight: 162.0 lb. oz. 73.483 kg. Patient's BMI: 26.2 3. Vital Signs: BP: 153/97 Pulse: 73 Resp: 16 Temp: 02 Sat: 98 ECG Mon: 4. Pain Intensity: 7 5. Fall Risk: Dizziness: N Needs help standing or walking: N Fallen in the last 3 months: N Fall risk comments: 6. Patient on Blood Thinner: None 7. History of Hypertension: Y 8. Opioid Therapy greater than 6 weeks: N Opiate Contract Signed: 02/15/19 9. Risk Assessment Tool Provided: LOW-0 10. Functional Assessment Tool: 11. Recreational Drug Use: Past greater than 3 mos Drug Type: Tobacco Use: Former Smoker Tobacco Type: Amount or Packs/day: How Many Years: Alcohol Use: Yes Frequency: Quant:
== END ==
LOC: PAIN 05-14 11:21
PROVIDERS: ATTEND Clinical Nurse Specialist Adult Health
DX: M54.50 Low back pain, unspecified (principal); M17.0 Bilateral primary osteoarthritis of knee; M25.561 Pain in right knee; M25.562 Pain in left knee; Z96.653 Presence of artificial knee joint, bilateral; Z87.891 Personal history of nicotine dependence; Z88.6 Allergy status to analgesic agent; Z88.8 Allergy status to other drugs, medicaments and biological substances; Z79.899 Other long term (current) drug therapy